=== PATIENT | male | born 1990 | race Caucasian/White ===

== ENCOUNTER 2023-05-18 12:43 | Outpatient (OUT) | payer OTHER, SELFPAY ==
[2023-05-18 13:01] LABS: Basophils Percent Auto 0.4 % (0.2-2.0); Eosinophils Absolute Auto 0.1 10^3/uL (0.0-0.7); Eosinophils Percent Auto 1.1 % (0.9-7.0); Hematocrit 43.8 % (42.0-54.0); Hemoglobin 15.6 g/dL (14.0-18.0); Immature Granulocytes Abs Auto 0.01 10^3/uL (0.00-0.03); Immature Granulocytes Pct Auto 0.2 % (0.0-0.5); Lymphocytes Absolute Auto 1.5 10^3/uL (1.2-3.8); Lymphocytes Percent Auto 28.4 % (20.5-60.0); Mean Corpuscular HGB Conc 35.6 g/dL (29.9-35.2); Mean Corpuscular Hemoglobin 31.1 pg (25.9-34.0); Mean Corpuscular Volume 87.3 fL (80.0-94.0); Mean Platelet Volume 10.1 fL (9.5-13.5); Monocytes Absolute Auto 0.4 10^3/uL (0.3-0.8); Monocytes Percent Auto 7.5 % (1.7-12.0); Neutrophils Absolute Auto 3.3 10^3/uL (1.4-6.5); Neutrophils Percent Auto 62.4 % (43.0-75.0); Platelet Count 218 10^3/uL (150-450); Red Blood Count 5.02 10^6/uL (4.70-6.10); Red Cell Distribution Width 12.1 % (11.0-15.0); White Blood Count 5.4 10^3/uL (4.0-11.0)
[2023-05-18 13:21] LABS: Estimated Average Glucose 97 mg/dL
[2023-05-18 13:46] LABS: Alanine Aminotransferase 28 U/L (16-63); Albumin Globulin Ratio 1.4; Albumin Level 4.6 g/dL (3.4-5.0); Alkaline Phosphatase 65 U/L (46-116); Anion Gap 6.3; Aspartate Amino Transferase 16 U/L (15-37); BUN Creatinine Ratio 14.3; Calcium 9.1 mg/dL (8.5-10.1); Carbon Dioxide 33.6 mmol/L (21.0-32.0); Chloride 101 mmol/L (98-107); Chol HDL Ratio 2.7; Cholesterol 172 mg/dL (<=200); Estimated GFR (African America >60 (>=60); Estimated GFR (Non-African Ame >60 (>=60); Free T3 2.84 pg/mL (2.18-3.98); Globulin 3.3 g/dL; Glucose 85 mg/dL (74-106); HDL Cholesterol 64 mg/dL (40-60); Potassium 3.9 mmol/L (3.5-5.1); Sodium 137 mmol/L (136-145); Thyroid Stimulating Hormone 1.583 uIU/mL (0.358-3.740); Total Protein 7.9 g/dL (6.4-8.2); Triglycerides 55 mg/dL (<=150)
== END 2023-05-18 12:44 | disposition home or self-care (01) ==
LOC: LAB 12:47
PROVIDERS: PCP Family Medicine; Visit Provider Family Medicine
DX: Z00.00 Encounter for general adult medical examination without abnormal findings (principal); E78.5 Hyperlipidemia, unspecified; R73.09 Other abnormal glucose
CPT/HCPCS: 36415; 80053; 80061; 83036; 84436; 84443; 84481; 85025

== ENCOUNTER 2023-06-10 09:58 | Outpatient (OUT) | payer OTHER, SELFPAY ==
--- NOTE | 2023-06-10 10:06 | US_ITS ---
The [address] [address] Patient Name: PAT DICKENS MRN: [id number] date: 1990 Sex: M Assigned Patient Location: US Current Patient Location: Accession/Order Number: [id number] Exam Date: 06/10/2023 10:07 Report Date: 06/10/2023 12:03 At the request of: CLEMENTINA HENRY Procedure: US right upper quadrant EXAMINATION: US right upper quadrant HISTORY: R10.11 right upper quad pain , epigastric pain COMPARISON: No relevant comparison available. TECHNIQUE: Transabdominal evaluation of the right upper quadrant. FINDINGS: LIVER: Normal size and echotexture. Color Doppler demonstrates patent hepatic veins. PORTAL VEIN: Duplex Doppler demonstrates normal hepatopetal flow pattern with flow velocity averaging 24 cm/s. GALLBLADDER: No visible gallstones, wall thickening, or pericholecystic free fluid. Negative sonographic Ramsey's sign. BILIARY: No abnormal dilation or stones. Common bile duct diameter is within normal limits. PANCREASE: No visible mass, abnormal atrophy, or duct dilation. KIDNEY: No hydronephrosis. No visible mass or stones. Size: 11.0 x 5.4 x 4.2 cm US/US right upper quadrant IMPRESSION: 1. Normal right upper quadrant ultrasound. No specific findings to account for patient's symptoms. Electronically authenticated by: PAT DE SOUZA Date: 06/10/2023 12:03
== END 2023-06-10 09:59 | disposition home or self-care (01) ==
LOC: US 09:59
PROVIDERS: PCP Family Medicine; Visit Provider Family Medicine
DX: R10.11 Right upper quadrant pain (principal)
CPT/HCPCS: 76705

== ENCOUNTER 2023-10-11 09:20 | Outpatient (OUT) | payer OTHER, SELFPAY ==
--- NOTE | 2023-10-11 09:24 | US_ITS ---
The [address] [address] Patient Name: PAT DICKENS MRN: [id number] date: 1990 Sex: M Assigned Patient Location: US Current Patient Location: Accession/Order Number: [id number] Exam Date: 10/11/2023 09:50 Report Date: 10/11/2023 14:09 At the request of: CLEMENTINA HENRY Procedure: US abdomen complete EXAMINATION: US abdomen complete HISTORY: Right Upper Quadrant Pain COMPARISON: Ultrasound right upper quadrant 06/10/2023 TECHNIQUE: High resolution sonographic examination of the abdomen was performed. FINDINGS: LIVER: Normal. Normal size and echotexture. No significant masses. Normal waveform and flow within portal vein. BILIARY: Common bile duct is upper limits of normal in diameter, 6 mm. Unremarkable gallbladder. Negative sonographic Ramsey's sign. PANCREAS: Normal. No visible mass, abnormal atrophy, or ductal dilatation. SPLEEN: Normal. Normal size and echotexture. KIDNEYS: Normal. No mass or obstruction. AORTA/VASCULAR: Normal. No aneurysm. Duplex Doppler demonstrates normal flow and waveform. OTHER: Negative. US/US abdomen complete IMPRESSION: 1. No abnormal or suspicious findings to account for patient's symptoms. Electronically authenticated by: PAT DE SOUZA Date: 10/11/2023 14:09
--- OUTSIDE RECORDS SUMMARY | 2023-10-11 09:26 | XMS_ITS | CCD ---
Author Organization [facility] Care Team Providers Care Civil Engineering Project Designer Name Role Phone DR CLEMENTINA HENRY Primary Care Unavailable DR CLEMENTINA HENRY Consulting Unavailable DR CLEMENTINA HENRY Attending Unavailable DR CLEMENTINA HENRY Admitting Unavailable WESTDR SHANELLE V Consulting Unavailable Chloe Borges Unavailable Allergies Allergy Classification Reported Allergen(s) Allergy Type Date of Onset Reaction(s) Facility Penicillins (antibiotic) (1 source) Amoxicillin Drug Allergy [facility] Repository (1 source) Amoxicillin Drug Allergy [email or web address] Other Medications Current Medications Medication Drug Class(es) Dates Sig (Normalized) Sig (Original) dexamethasone 1 mg/ml / neomycin 3.5 mg/ml / polymyxin b 90124 unt/ml ophthalmic suspension (1 source) Aminoglycoside Antibacterial, Polymyxin-class Antibacterial, Corticosteroid Neomycin-Polymyxi n-Dexameth [id number] INSTILL 1 DROP INTO LEFT EYE THREE TIMES DAILY FOR 7 DAYS Ophthalmic for 25 Days Active doxycycline hyclate 100 mg oral capsule (1 source) Tetracycline-class Drug Start: 10-12-2022 take 1 capsule by mouth every twelve hours Doxycycline Hyclate 100 MG 1 capsule Orally Twice a day for 10 Sep, Active predniSONE 20 mg oral tablet (1 source) Start: 10-12-2022 take 1 tablet by mouth every twelve hours predniSONE 20 MG 1 tablet Orally 2 times a day for 5 day(s) Sep, Active Problems Problem Classification Problem Date Documented Da te Episodic/Chronic Chronic obstructive pulmonary disease and bronchiectasis (1 source) Bronchitis, not specified as acute or chronic Episodic Other nervous system disorders (4 sources) Paresthesia of skin; Translations: [PARESTHESIA OF SKIN] Onset: 11-21-2020 Episodic Other upper respiratory infections (1 source) Acute sinusitis, unspecified Episodic Spondylosis; intervertebral disc disorders; other back problems (1 source) Other cervical disc degeneration, unspecified cervical region; Translations: [OTH CERV DISC DEGENERATION UNS CERV] Onset: 11-25-2020 Chronic Results Test Name Value Interpretation Reference Range Facility Physical Therapy Noteon Physical Therapy Note [id number]#1.0 [facility] [id number]#1.[address] [place] [address] Provider Orderson 12-27-2020 Provider Orders [id number]#1.[address] [place] [address] Coding Summaryon 12-26-2020 Coding Summary [employer]Base 64 PokeiaiiSBq0sDn+PGhlYW Q+CS5EVQMuM28znCVkhK2D M3jRJN8PZEPWTMAQPU8GOY 5blET3XFvxT8YsgbZh FknzePLbEF70GTs9OTV7vD hoSPufrC7jzQIiJ2v7NuGj UV47yB97HNjcLQXjJzA1Oq ZpbjsgbWFy I5maFzApgSJmCmd+PHRhYm xlIHdpZHRoPScxMDAlJyBz nEisZZ2fCi8jEBVnZDCkjK xhcHNlOiBj a7kiMVQlYBdwWO2hkTgjW9 NshCX3DOMtb3t5Xg65cZP+ TTBrKTB6hBvgKIrfi444Li Mzj7mbZYQ3 aRBaHHthNBX9K43sa3R5YM QoUTBpOYK0eYI9nT5rdPla ktttN6HvmVQwIrZ5MUQ6qO OpwP0eqCdc sehslR3mQzl+F05UPG0SAF QLPE5KPuv4F6VyUzeciTN+ FE18FAHnLX33nEPuaFIui7 kghIu5CdEt BIGjHAP6oMbrUHdlb8RlVG XqZ63bgBLfw7U6KBPtdWze aGRbOgBwxPJ3aK3bDQiftg hmc2awiwwz Ctsxa7xoqr61xS50F98bDX iwNYSwNMH2LSTwRAZsfJmo hp1aqE4gTp6+SVkri9eis1 awhCa7ZhKh PYZnzmZovQowTRH9s9QpTy 10N6GtaUooh1JrDtm4ok77 fWOkr4S5vNB2JWsnDDHqjC 9pYAbiSfU1 MTYlSpWdpI12iMEcGObzEw 0ugRztaBqhUS7dXNAouxqg BVJkiF8sUCTqfUHepXhmLR 4wNTBpbjtm u711UoMuKRY2FVSwuJCbP5 UrrM0qKkEbEHBvFXRxE6Sn cWCyXNeqK934MCnqBfF8BW YpblAgS1Vb UNNdySlfWeN1d9U4Ym6Wz2 OkupdwAYK9VTmlTBF7KmO7 EcToOaZ7A0ImFac2DQLvpF fnPI1mG8Tr NYLdkfcwmsayiRP1QRBbNA TdyP00fCOxRVfsZz5cz8I3 d083KMRpONFwaI55Ax6nwG ogMTBwdCBU gQ2zqpffb8vgekuxIlDjPV AgPEe4WMs8IWQqnFjbMfPo DRA3EiA5IYX2eXGskI0jyS hsfttpnS8v Oyc+N08cyE3lEAD7DQV8wg wtIBRwzoGyIC93OZ66R5Lp PjwvdGFibGU+PGRpdiBzdH vbVF6oSjDg n8uig6PlZVrnT0CvNSDzHL rbXng3GOLgVMO4sOY5oH1v OWYiHNyny2Q7dKX5P6Uehw Gasr6gw8nm ZNFrALthS39spDCik8N9VB WfjMS4FRGdeRxjKyWbsY71 Oyc+XNXzyYowy4PmOpnna0 eta5tiiBe2 SaAiMIOkcqFozCdlLEO6x6 JqZy42T17nDCpzSSAxIYUb UFLsFLCagAmeem2bwU2iWw 8+PGNvbCB3 pFK8oX5qDZGqXrQ1DWpuM5 40QdRjnYOhPnrco7sav5om mLe1GdTcFDVrocEdmLxdJR F5n5HrHx76 M85fWHktTQHcQZEzOVCiNC WpaUnexv8lqR9sPv2+PC9j s4tccp04uT12yQY+PHRkIH Q8xBqeSWph XSDsqQ4bCFspLdM1UXHpCq DavN90nAWzHCzcDx8hdJcq yWufIA6kOEBtohscx944Au Cvn8xwXVOe gJQzFXkzJBS8E97hv2J3LQ LfGWVmXTP5qKD2nO9gkPoj bjogbGVmdDsgdmVydGljYW mvXMxiJ304 IHRvcDsnPlBhdGllbnQgTm ImOGy2A8MiSdr3TMEhfAdy SL2tzLRuYOboXw8vlGjfxP noPU3sBHTh rjsqc423RkUxv7gpAWIfiD UbBIxeTMW4O96pa8G4XFDw FJQhREW0bJB0dB9vlZbose ogbGVmdDsg ltVjvYwbHNlhUCaxD353NZ RvcDsnPkJpcnRoIERhdGU6 TA09LH82xGGyp4E9jSJ9H9 BhZGRpbmct hdnsnPY2FAGkPYPucB93Aj 9jxGllXj1yYXKkZSD5APIp zVKsC8XbvK9lGbToKZLdSE WuY1DsgPHk ZXauZ002RDztDzH2BYNgpl CyT7UjZDBbbHncTqI3i0Z4 Lk5TO4G0TG53FL89eIAot1 U1sXY9X5St SUAypozhkygjeFH1XIOoFE RxrZ14Ua6pxZytKo0bLVPk PPP0YFKwkGGxD0TavZ5fMk AjMDAwMDAw E2PbfYFlSQpdE712YPyoPx N2AHClrfQzQ7WfUIBztKyq GsJ2y7S3Xx8FGIk1YI26WB 78oGScq4A9 tHG8M4ZxVDJottqlxglstG M8OMQbIOTrdT67Dg8srOvv Mr3gDZKkSWT2KGAyfXZtE6 ZooZ0gIrJi PWEcTHIaB0YpqHHaBQfrL1 45NVajYkB6JLBoxtSnN2Oy RXClqNtuCgZ7h7S1Ls1STL IlSU70YFW0 iJU4AU56DE61D5SfCrlgoX FibGU+PHRhYmxlIHdpZHRo SPixTLFpLzSixFczOF8xPh 9yZGVyLWNv hLhyuWHaItMnl6hlEWOuSE xvAM3flQlaT3NznBL6JHYq p2u2Ro13S93fR9EomYV+PG CtnLR2pRU1 aC4cCzWqFyZ1ZNdmH784Ol ZdsBVfZvtij9wbw6geePs7 DbP3PPNkvlMllXxuMGV6x9 IxXs65D02y IHdpZHRoPSIxNSUiIHZhbG ldsy6xxB2pFc4+PGNvbCB3 nED0xA9oZhKpSmV3ADqjE6 49InRvcCIv Nfiej4dkj9mstPn0WbSxUK LebhRxaZkxRFY4f7DdIs22 F9ZvdOksb5QcXjw1yq66oJ Fko5X8nOA3 Y5UwCSGpjplerPMxuPnpUE 9yZVKcmvxaVWZmhC0sMZCp U3o7ZwClRyV7EIjrW7Sbza K7COJycATn OGqtOVN7F16gb1Z0ULUsHU IfVIT5zWW5dD8tjBdctmsf bGVmdDsgdmVydGljYWwtYW rgH404OSNr yHqeLTCehG9uLFWjhSRiaB shCG2tSTXlbcucShmGFI5S G02xOeDuYWVRZTYAVcJIG0 9UVDwvdGQ+ CFWiOKD8eEyzEIpxOOOzqB 7xQJPcV4g7KpQeExD7AZnb G7JaZYXmxzuxNk83lE0wIi EbNiK5ZYyh B8IfiaG0BXXwdLYfAZmkVP G7Z04oz3I7PPYyEYLnRCL7 uPE2kE1bgYiafcweoQVreY sgdmVydGlj CTyhHVlhK511RJAyrGpwAu Z6UuX5EoV6LEV3C9PzNho5 XFKbvHcbYG0erQSaRAqkLm 1yaWdodDog TI5yADPbyrbvKZJtpD4nTR IxiQBioFouAS8wNERkcswn y285HkOtLOM2AMGbfIKqW2 XczA0hMmLw PTCwQRPsP4XvnEZaAZmvN3 54FOgfTiM9OVXvwhFhA0Hw RGWkdVwtWrI5w8S0Zg6fXF BZZWFyczwv dGQ+ZSEpHYH0bYtkGGocLS UpuZ1cRYBmP7h2SyOfDeS6 RKjaB9KzHZUkfgyaTk06yW 1aJsTiTlH6 UKanH4FujwL8KFUruCSqOX gaCZP5U25jw1C4BANfTWXr DJP0uOQ2xQ1ebDqqvwpqhV VmdDsgdmVy sHrnYVtdUVkpT611SRQzsC ahFs5CVET9W6XwJxg3CNJy rRpiHR3kmRZbULymWc6ubL shlKsrYS8r WCDffvvbKYJhwM2kZAXtlP KmuBvbMZ2kHGVqiiiht250 BdXlRWT1TKTljWWgU6PffG 9yOiAjMDAw UYTwP4KqqWRwFWlvR353LP ebUjS6PHApaxKoN0CiBLWd oTjgVyN5i7P4Fx8DUZQ2mc EwdklzE4K5 uCZ5uNOttMmauJW+PC90cj 37B0IzGhirUsm9LQJrAIX4 lYB1kO8zFDDuLFqua9M5xL W6W8KbkgEo gr9zf3ntCFUeDVjvU61bvO Frg5Z2GEAanZC5ZQIbrOoz VkQqoH06Pxn+PGNvbGdyb3 VaWcniz6fj j4qhwDp7VfGvJVTpplYrcL zpJDY8z2YoKc06R27aDNbw ZHRoPSIzMCUiIHZhbGlnbj 1mgI4iWc7+ MFZdyJC5cUA4dD3hWtWwJm X3VXowO539ZkZaxZVvMmvf n7yuo9drnIn8AhUuZJYllq FsaWduPSJ0 q9IaGu06P3RvdYlye0WaRk e0zd76fAQjk4O9tGZ1L8Ka VYNyjwvxjATyvXnjGI7vHF BpbjtwYWRk jN5sHZZpI4e8TbDaMuD1ZG nzD9FkwzF1GEFqsDHpDMBi uVNFwQ4ctlmbj8tajkhaSc AwMDAwMDt0 FIa9IQMlhAmgKlCsYPN8Pg I1FHO7kPQrgN4zsUyuudfg iQ1cApu+EDj2b6vofKJpRV 5bnNA2WH14 OK38jGHxe6I5hJD5F9FyIS BcdrqfextrbTG0KJXfHVZk uC05Ol6zuJqoTn7cUMXwMV D7CTTyzYTl V4OolQ4eTqLcCIGjNGKlP8 GfkGBpAUsvJ667OGlpRkQ7 EOEbuoXsE4JaHNBkbWfqBa K1v8N1Ep2Y ZD39QH48YU90uUEpm5N7kP U0J1EaKVVbgepmjhrxxQQ8 KHBvTMYcfC47Ph1imHsaEg 8xCWNyHHP6 BZIwwVMyJ5FlaD3lUzKaVY YdUSVgF2IoyFCuCYjfM129 TOiuAnD4BNOasmZiZ5LpEY FsaWduOiB0 h3A3Xx0GZo42UN95VR83oK Omy5P1hNR8O5McBZOxuqmk qsnqhSP1OWQiTEZmwS44Sp 9aeEppGr9x ETNpAMF1GXRagTSlK1KxeD 6hRjXyKFTuXGDvL5NdaSYy SBezE495QJitJkY0SIKvex AmE4OxUISa dHieHoK5q0L6Lr3MCWcafk f0D0BpCrlemAY+XK57YMIv PI52iSYjfTCus4dasMd7Yx EwMCUnIHN0 eWx (more content not included)... Normal [facility] XR CSPINE MIN 4 VIEWSon 11-12 XR CSPINE MIN 4 VIEWS EXAMINATION: XR CSPINE MIN 4 VIEWS HISTORY: Paresthesia COMPARISON: No relevant comparison available. FINDINGS: BONES: Normal alignment with no acute fracture or spondylolisthesis. Mild degenerative spondylosis and facet osteoarthropathy DISC SPACES: Normal. No significant disc height narrowing, subluxation, or endplate abnormality. PARASPINOUS: Negative. No paraspinous abnormality is seen. OTHER: Suspected left C3-C4 foraminal stenosis IMPRESSION: Mild degenerative changes with suspected left C3-C4 foraminal stenosis. Consider MRI for further evaluation Electronically authenticated by: SHANELLE HARTMAN Date: 2020-11-22 07:07 Normal [facility] CNPTOUTREACHocain 09-11-2020 [facility] Patient Outreach (COVAMN) PAT DICKENS JR. ([id number]) 1990 M Date Time Provider Department 09/11/20 SHIV TEE During your visit today, we recorded the following information about you: Allergies As of Date: 09/11/2020 Noted Allergy Reaction AMOXICILLIN 06/04/2019 4 - Hives Date Reviewed: 07/16/2019 Reviewed by: Nathan Krishnan Ma - Fully Assessed Order(s):SARS-COVID VACCINE 1ST DOSE APPT [[id number]] Order #: [id number] FUTURE Prescriptions as of 09/11/2020 Sig: OMEPRAZOLE 40 MG CAPSULE,NAYA* Take 1 capsule by mouth daily* AMITRIPTYLINE 10 MG TABLET 1 tablet at bedtime week 1, 2* Patient not taking: Reported on 07/16/2019 Problem List As Of Date: 09/11/2020 (None) Encounter Status:Closed by [employer], PRODUSER on 09/14/20 Normal [facility] Vital Signs Date Time Vital Sign Value Performing Clinician Facility 10-12-2022 13:50-0400 Body height 175.26 cm Chloe Whitmanmond Other [email or web address] Other 10-12-2022 13:50-0400 Body mass index (BMI) [Ratio] 22.44 kg/m2 Chloe Katerina Other [email or web address] Other 10-12-2022 13:50-0400 Body temperature 97.6 [degF] Chloe Katerina Other [email or web address] Other 10-12-2022 13:50-0400 Body weight 68.95 kg Chloe Katerina Other [email or web address] Other 10-12-2022 13:50-0400 Respiratory rate 18 /min Chloe Katerina Other [email or web address] Other 10-12-2022 13:50-0400 SaO2% (BldA) [Mass fraction] 98 % Chloe Borges Other [email or web address] Other Encounters Encounter Date Encounter Type Care Provider Facility Start: 10-12-2022 End: 10-12-2022 ambulatory Chloe Borges Other [email or web address] Other Start: 10-12-2022 Office outpatient ne w 20 minutes Chloe Borges [facility] Start: 11-21-2020 End: 11-22-[address] CLEMENTINA HENRY Facility: Payers Date Payer Category Payer Unknown [id number] 1957 Unknown [id number] Social History Date Type Detail Facility Unknown if ever smoked [email or web address] Other Sex Assigned At Sex Assigned At Bir th [email or web address] Other Evaluation note 10-12-2022 Note Date & Type Note Facility 10-12-2022 Evaluation note Encounter Date Diagnosis Assessment Notes Sep, Acute sinusitis, recurrence not specified, unspecified location (ICD-10 - J01.90) Sinusitis home care material was printed Drink plenty fluids, get plenty of rest. Take Tylenol or Motrin as needed for aches pains or fevers. Take the doxycycline as prescribed until gone. Take the prednisone as prescribed until gone. Consider running a coolmist humidifier at the bedside. Follow-up with your family physician if no improvement in 2 to 3 days Sep, Bronchitis (ICD-10 - J40) Acute bronchitis material was printed [email or web address] Other Medication management note 01-04-2021 Note Date & Type Note Facility 01-04-2021 Note [id number] [facility] Clinical Note 11-22-2020 Note Date & Type Note Facility 11-22-2020 Note PROCEDURE: XR SHOULD ER LT 2V or > COMPARISON: None. HISTORY: Paresthesia FINDINGS: BONES:No fracture, acute abnormality, or significant arthropathy. SOFT TISSUES:Negative. No visible soft tissue swelling. EFFUSION:None visible. OTHER: Negative. IMPRESSION: No acute abnormality Electronically authenticated by: SHANELLE HARTMAN Date: 2020-11-22 07:09 [facility] Summary Purpose Family History No Family History Records FoundNo Family History Records FoundNo Family History Records Found Advance Directives No Advanced Directives Records FoundNo Advanced Directives Records FoundNo Advanced Directives Records Found Additional Source Comments (unrecognized sect ion and content) No Status Records FoundNo Status Records FoundNo Status Records Found INFORMATION SOURCE (unrecogn ized section and content) DATE CREATED AUTHOR 09/14/2020 [facility] DATE CREATED AUTHOR AUTHOR'S ORGANIZ ATION 11/28/2020 [facility] DATE CREATED AUTHOR AUTHOR'S ORGANIZ ATION 03/21/2021 [facility] REASON FOR VISIT (unrecogniz ed section and content) SORE THROAT, COUGH, CHEST CO NGESTION FOR RECORDS PERTAINING TO PATIENTS WHO ARE OR HAVE BEEN ENROLLED IN A CHEMICAL DEPENDENCY/SUBSTANCEABUSE PROGRAM, SOME INFORMATION MAY BE OMITTED. This clinical summary was aggregated from multiple sources. Caution should be exercised in using it in the provision of clinical care. This summary normalizes information from multiple sources, and as a consequence, information in this document may materially change the coding, format and clinical context of patient data. In addition, data may be omitted in some cases. CLINICAL DECISIONS SHOULD BE BASED ON THE PRIMARY CLINICAL RECORDS. [employer] provides no warranty or guarantee of the accuracy or completeness of information in this document.
== END 2023-10-11 09:21 | disposition home or self-care (01) ==
LOC: US 09:20
PROVIDERS: PCP Family Medicine; Visit Provider Family Medicine
DX: R10.11 Right upper quadrant pain (principal)
CPT/HCPCS: 76700

== ENCOUNTER 2023-10-24 14:08 | Outpatient (OUT) | payer OTHER, SELFPAY ==
--- NOTE | 2023-10-24 14:16 | CT_ITS ---
[address] [address] Patient Name: PAT DICKENS MRN: [id number] date: 1990 Sex: M Assigned Patient Location: CT Current Patient Location: Accession/Order Number: [id number] Exam Date: 10/24/2023 15:25 Report Date: 10/25/2023 06:51 At the request of: CLEMENTINA HENRY Procedure: CT abdomen pelvis w con EXAMINATION: CT abdomen pelvis w con HISTORY: Right Upper Quadrant Pain R10.11, Periumbilical Pain, Nausea COMPARISON: Ultrasound abdomen complete 10/11/2023 TECHNIQUE: Axial, Coronal, and Sagittal images were obtained without and/or with IV contrast as indicated by examination type. Dose reduction techniques were achieved by using automated exposure control and/or adjustment of mA and/or kV according to patient size and/or use of iterative reconstruction technique. FINDINGS: LUNG BASES: No visible pulmonary or pleural disease. LIVER: No enlargement, atrophy, suspicious density, or significant focal lesion. BILIARY: No dilatation or calcification. PANCREAS: No lesion, fluid collection, or abnormal duct dilatation. SPLEEN: No enlargement or focal lesion. ADRENALS: No mass or enlargement. KIDNEYS: No mass, obstruction, or calcification. BOWEL/MESENTERY: Approximately 12 cm long segment of circumferential wall thickening of distal small bowel. No obstruction, free air, free fluid. AORTA/VASCULAR: No aneurysm or dissection. RETROPERITONEUM: No mass or adenopathy. LYMPH NODES: No adenopathy. URINARY BLADDER: No visible focal wall thickening, lesion, or calculus. PELVIC ORGANS: No visible mass. Pelvic organs appropriate for patient age. ABDOMINAL WALL: No mass or hernia. BONES: No bony lesion or fracture. OTHER: Negative. CT/CT abdomen pelvis w con IMPRESSION: 1. Segment of abnormal circumferential wall thickening of distal small bowel within right pelvis suggestive of inflammatory bowel disease/Crohn's disease. Possible focal enteritis. No obstruction. Electronically authenticated by: PAT DE SOUZA Date: 10/25/2023 06:51
--- OUTSIDE RECORDS SUMMARY | 2023-10-24 14:33 | XMS_ITS | CCD ---
Author Organization [facility] Care Team Providers Care Folded Cloth Taper Name Role Phone DR CLEMENTINA HENRY Primary Care Unavailable DR CLEMENTINA HENRY Consulting Unavailable DR CLEMENTINA HENRY Attending Unavailable DR CLEMENTINA HENRY Admitting Unavailable WESTDR SHANELLE V Consulting Unavailable Chloe Borges Unavailable Allergies Allergy Classification Reported Allergen(s) Allergy Type Date of Onset Reaction(s) Facility Penicillins (antibiotic) (1 source) Amoxicillin Drug Allergy [facility] Repository (1 source) Amoxicillin Drug Allergy [facility] Other Medications Current Medications Medication Drug Class(es) Dates Sig (Normalized) Sig (Original) dexamethasone 1 mg/ml / neomycin 3.5 mg/ml / polymyxin b 14095 unt/ml ophthalmic suspension (1 source) Aminoglycoside Antibacterial, Polymyxin-class Antibacterial, Corticosteroid Neomycin-Polymyxi n-Dexameth 3.5-83678-0.1 INSTILL 1 DROP INTO LEFT EYE THREE [...] Facility Physical Therapy Noteon Physical Therapy Note [id number]#1.0 [facility] [id number]#1.[address] [place] [address] Provider Orderson 12-27-2020 Provider Orders [id number]#1.[address] [place] [address] Coding Summaryon 12-26-2020 Coding Summary HTMLBase 64 LajixdzdNJc5wGu+PGhlYW Q+MC6ISYKmN20obQQzxJ4W P5tHGF1TDHDBDRQCSS7LSP 9lfNH5ZPgdQ2PxldGc DyiyaSDxOO57NUj7YHV7aB hoGEkrbL3liAIzM7m8QbPo ZK14aS48ZSovEKZqQjS2Af ZpbjsgbWFy N7ctLxDjpBDlHrx+PHRhYm xlIHdpZHRoPScxMDAlJyBz zJwcKB1oGz4iACFqSOUxoK xhcHNlOiBj g8otUNKxODrmPV2kvVjaF8 LbvZZ6BHKyv9x5Vv56tXP+ CRPsXZG7iDvqHXurv720Bx Phi0bvZJD1 vAIvHGbeFFC7S29nb5V2LQ BcBQEdJMQ3mWI6pA8nvLtw kaauL6BwrSCgBxX0MZD2eD OxxU9awMxl tucpgO6uPvz+H64MUQ3POZ KHDW0FKzy6D1AxPuhczQF+ SD45OFLvEJ16lKAlmRYuk7 jwsMd0IlHo PSWgBEJ1nWsnEWrnm6BqGU IoJ98hdISbi6J7UZWyuVkw pFArZnEzzUB1sM5pXSwwtr ydv9kdknck Gizzt8afyo01lJ17M67bMD nvMOTaNXZ3WTXzKMDftHpc he1lfM4iOm3+ZOnxd9tma1 pisBz7WlWt LQKjghGxqWoaHKZ5s1HoOt 12N5WfsChgx8XoAov3ub03 jTYga2S1tRU2BDeiGFApjE 4iUVrmOcJ4 GCTvDfKyiH36gKWaVOljVh 3axPvpbUiaIJ0vFEPesciv LIAihD4kZAUumRZjgNkoPC 4wNTBpbjtm h508VxTvQBF6TEKubTYrM3 YutB8tCfDmUHOuXJFiL4Hh uELfTEomF312YBvjSeF6VW OdvzVxT9Zd KQPpzXoiGiW1j5A8Xu7Qs8 GwkkhvTKL1VZijYIT5JhH3 MpQwYfT6C5LlWct4QXCvrX gkSZ8jX7Xu HSIvckbpnoiflTI0HYObMY JzeU16pUQbDHwfEp8zr1F5 m457JLZeTUBsgR07Rj1zyY ogMTBwdCBU fG8mcedvt4nzltznEqAfES YsGBe5QJq0WYVtlDyuAsDu BGI5DfM0ZEY2cJFwkX3zhA tzpxybrX6o Oyc+J62hyK9rIYJ5PAG7pg kmYVEedvNpVM63RA69B9Fp PjwvdGFibGU+PGRpdiBzdH eiTM5oLrHe q4lkt2GzWQhnI7KqFFGaAH qiFus1HXYvKKO4uYU4gG6i GXUhYCvcn1G7iHL2V3Gnco Aggd6ec6wd IZCdCWdgY16nzRSom6X2TX AkoAK8DCBtxHadUxCbvR53 Oyc+RUOkdXgxc4HeEpcox3 qpj5iacUw5 PyQbSDYqpaQmaOelBBA5v8 JzPp78E35mHWkwTYUpIYTl NRWuFECnzUoscn9jiK9cHw 8+PGNvbCB3 wZD0uP9uVEQsSnA1KGoiX6 86IsXorMFxJoofp2mhi9nq sVe2OpSfRAFhfsEorCzjBU T9r9YwBl04 A97dEXfjTSArKEFiNNYtJU IpeTbbst0rbQ8bEn4+PC9j t7nyuh77yK67rST+PHRkIH Z5wOqxHQkb FQJogV5mNIroIuM3MZEnCt QpuU96rJBzWYmuEl6qePkt gYqcTT4eDXVdizdre030Ht Wei0tqRQFq sCEkMTguIGC2X25ab2D0MP HlSTBvVUH6vCC3wI5jxRtn bjogbGVmdDsgdmVydGljYW jgVWiqP176 IHRvcDsnPlBhdGllbnQgTm FnTJv5R8IkGdd1QIPjuDcb EM0hqKGxRIhcVt0paDbwlB clQV0vNLRf tgohu336QfApd8gcSLSzkS UwOZquTSL5M27lt6L3TCUs ZILxXIE7jLV1iH6koUsjhb ogbGVmdDsg hpTrfKsrCIkvKDvnN657XP RvcDsnPkJpcnRoIERhdGU6 HP47AB05eEMvc6R1yKS1N7 BhZGRpbmct ixgekPR9FNRvHKIevJ77Oq 8ugZozIj3yIHIhTKQ9SRDb oMNoZ3TzkF2yLaPbPEUuYH MkN1PhzDRx KYulJ389ZTefLjQ9RILsmd QmS9ZoDSQrxIywAbU4c1X3 Pr2BC6M1BG14AW67dQSql1 S1dDM6E1Kw GEXtfjolrozhsBO7MXUkWT TveN17Yz5cfIazCg9sKIHk UPD3MXMevWSfO4GwsK7zOm AjMDAwMDAw R0RweDUsTWhqA059VFiuFg D8XEPxhfCxM1JlUYFajUjv SfJ9s0E1Dy9ZQEb3SK53MJ 35mTJon9H3 fHK6D0UiRXFvajxwwtdbpL V8FKWoDVHbyK43Nd1irNkv Nu7wRGXhXDS8AUZcdPGgH6 CinK4cDzBj ZNOwLFCaU8GzvXYqHPfkO8 22AEbiHlV4BCNdjrBiZ9Cy NEBdvOavWeT6w3D7Ox2ZOW HlIS13JYT2 xQL4YC69QA09H1JgNblhqH FibGU+PHRhYmxlIHdpZHRo FFvqEZRvKcWulWpfSX9iYw 9yZGVyLWNv jLtowLYyAcBut3exQCZlWP kfCE2eeQxrP8PggUV5KSFq i5n0Dn05G36lU9CpeQB+PG LvoDF8tWZ3 cE9oSpBmNmT6UOefE233Kz CtxDRpYiecy7iar0ibvTs5 FqS7GZNyqoDenDuaGFJ1r0 JaWu98B78c IHdpZHRoPSIxNSUiIHZhbG imad2viU6tOv0+PGNvbCB3 fZM4yB3mHuQfNhI1HHsjF0 49InRvcCIv Fjxaz5epl8dddIm2UiMuLR DrbeSugSycGKW8n8AtYr29 G1DhsHwty8YpWzm9jb01gF Wgb4J0pLU1 Q4YdQELsdjgbhUVwyOugUF 8hXRFctgyeDGYzbV4iHBMi C4z4YsKoPyQ2SNnaF2Jfpf G2TQRfqJNi TBrfNUM2T13gw9M3BTJhLS OaUXB6nDM4vS1joQhvazvp bGVmdDsgdmVydGljYWwtYW hpC021INOm gJghHANcpF5tMWMrbEObwK anJX9dWPEqlfnmTiuYLD8F E22wBaOzXQADWOISVeVQT4 9UVDwvdGQ+ OPHdYKB1jBozBHbeCQQgsR 6mPALoH2d9IjGzYtB7OZbf Y0YlKIOjjibdIn54jI3aCr ZtPsY6KFqw Y6MypzI1XFVawEPrJTsyDF L8V10lo4S7TKDiIULwKNZ3 vJT3sT8ppCscwilfdSCueF sgdmVydGlj CIdePXdiG279WSFpiUgjMy U7UjP8EtR8GDQ0U5DpZtn7 NMPvfTxcAF0dlQOkHMbsAo 1yaWdodDog WV0gRMAfelnjRYXllO6sNQ GbqAJqoRibVO2yMKThhfkc e907WmOiXPF2GHSrrIDbM0 XmsO0lMcSt MSZkZRCuX7EwbKYyJYkqE6 55KLcoXfM7MLAwymNpW0Ab XBNpvPnlBlO9f1X2Yi6oYY BZZWFyczwv dGQ+DVYnZRT6aRjwQFsfKN GupJ4vIEUcG1h0TtEfXpF0 UCflB0NpFPVbbefwQj01yA 7kRlGsGnU8 KWyfE7XtbvG6OWEgrSJtZV vgSLC9K78pn4Z5MSFeOYFm ZDV4mVO8eB8azZbhumnezF VmdDsgdmVy tLvpGMoaTSsxV370DVNrwM vyTw3CHQL1J8HgYyl5PHYu rWixAM5nzRWhGVqdNo5awN vhuXnfNH7t WMHxzldrDPZsjZ0yVWKblY ZihLiqXO1lNZJyopwfy297 MbFbAQV0KTBqaNJvK6LwsQ 9yOiAjMDAw GPPrK4UyvOLxZLcxZ752MA cpDiD1MDUdshMjF9IsTSVd nKqfUiS8u0T4Pc1MHRX3hc JqhoyuI7A6 oOT7uDChyCdedWB+PC90cj 70G7VjAchcWgo4OKBfPLW2 gOS4pY9lLVTiAMrrb2B0sD E7O6BijqSm gy3uz3tiAVAvOPlaT72qoW Ieb4Q4QCHloAY1UUGaxWyt GcVshI13Zll+PGNvbGdyb3 XnWpbhb9li y2neiQf4EgUzPBGvilImfN zzXDF3s6BtLc74C00wAAle ZHRoPSIzMCUiIHZhbGlnbj 1bgL4mIq9+ XAVajDW7rKU0sL2bPwCxQm J5UUyiN121FhOxtQTwXsvz d6mkv0sgaGf5WbLaIMCkxh FsaWduPSJ0 q7YbWc71U1FlmHblx6WeDl p5nf65wOYvy1I4uEB7A3Nj PZRotjbmbECzhUhaOC5pPO BpbjtwYWRk lH7hOTKfM8s2ReJwZqF8OG xsC4AeugB9CQEwySLjVSUx iAHLtW3ktkeje1onsqzsVb AwMDAwMDt0 HTl2FRNzbXbvBaFwVEX4Pq Q9KFU9mTGpaS7omLccpfub zB4aSpu+CMy7b1drnAOrOM 2aoMX7NL81 TI85pKHlq8G4wQL9W1NgNQ KobfbmecjysPI9KVJpSFRl pZ93Cn4hdTwaEp8iKBWaWH I6WWMbbLPe P8OfmB8sSwBtWDEfCWIeI7 DvrNJyQHejH479GHwdKeL6 JNLoqcHtK3TzJMAcvGmnOj V0r0U4Vu4P IY05GS88AJ62zZUbx6E0jZ N3B2NrIHAeuhmjadndaRT9 UIKzXDWivY40Dd7hyFokEs 0cMGQrNJW7 WKBbyCGdK6OgoB1zZxYwQZ BsKSBsW4NtnWXiQJesE883 GDxmTzC4QPArzlJiB9XlSJ FsaWduOiB0 v9W9Xg2PBx73DM90FR90oU Fia6T3iKQ7C9LoOJGkzzbv iyvnjOL9HDJdXSLtpC17Ow 4viTblGt8h SIQzUMC9OWBcaMFvF5FcsC 9gJzTpJVNkSILnV9DmuOXq FPurX558AXlvHnJ7TEGdaq SxH7EiIDYk zCaiVgS3v4F1Ms7QYYjhuv x8C4TpRguhoVS+SP72GMWd EV73eWOprLTbb5bbbFp6Tl EwMCUnIHN0 eWx (more content not included)... Normal [facility] XR CSPINE MIN 4 VIEWSon [...] by: SHANELLE HARTMAN Date: 2020-11-22 07:07 Normal [facility] CNPTOUTREACHocain 09-11-2020 [facility] Patient Outreach (COVAMN) PAT DICKENS JR. ([id number]) 1990 M Date Time Provider Department 09/11/20 SHIV TEE During your visit today, we recorded the following information about you: Allergies As of Date: 09/11/2020 Noted Allergy Reaction AMOXICILLIN 06/04/2019 4 - Hives Date Reviewed: 07/16/2019 Reviewed by: Nathan Krishnan Ma - Fully Assessed Order(s):SARS-COVID VACCINE 1ST DOSE APPT [01325MMT] Order #: [id number] FUTURE Prescriptions as of 09/11/2020 Sig: OMEPRAZOLE 40 MG CAPSULE,NAYA* Take 1 capsule by mouth daily* AMITRIPTYLINE 10 MG TABLET 1 tablet at bedtime week 1, 2* Patient not taking: Reported on 07/16/2019 Problem List As Of Date: 09/11/2020 (None) Encounter Status:Closed by Cybits, PRODUSER on 09/14/20 Normal [facility] Vital Signs Date Time Vital Sign Value Performing Clinician Facility 10-12-2022 13:50-0400 Body height 175.26 cm Chloe Whitmanmond Other [facility] Other 10-12-2022 13:50-0400 Body mass index (BMI) [Ratio] 22.44 kg/m2 Chloe Katerina Other [facility] Other 10-12-2022 13:50-0400 Body temperature 97.6 [degF] Chloe Katerina Other [facility] Other 10-12-2022 13:50-0400 Body weight 68.95 kg Chloe Katerina Other [facility] Other 10-12-2022 13:50-0400 Respiratory rate 18 /min Chloe Katerina Other [facility] Other 10-12-2022 13:50-0400 SaO2% (BldA) [Mass fraction] 98 % Chloe Borges Other [facility] Other Encounters Encounter Date Encounter Type Care Provider Facility Start: 10-12-2022 End: 10-12-2022 ambulatory Chloe Borges Other [facility] Other Start: 10-12-2022 Office outpatient ne w 20 minutes Chloe Borges [facility] Start: 11-21-2020 End: 11-22-[address] CLEMENTINA HENRY Facility: Payers Date Payer Category Payer Unknown [id number] 1957 Unknown [id number] Social History Date Type Detail Facility Unknown if ever smoked [facility] Other Sex Assigned At Sex Assigned At Bir th [facility] Other Evaluation note 10-12-2022 Note Date & [...] - J40) Acute bronchitis material was printed [facility] Other Medication management note 01-04-2021 Note Date & Type Note Facility 01-04-2021 Note [id number] [facility] Clinical Note 11-22-2020 Note Date & Type Note Facility 11-22-2020 Note PROCEDURE: XR SHOULD ER LT 2V or > COMPARISON: None. HISTORY: Paresthesia FINDINGS: BONES:No fracture, acute abnormality, or significant arthropathy. SOFT TISSUES:Negative. No visible soft tissue swelling. EFFUSION:None visible. OTHER: Negative. IMPRESSION: No acute abnormality Electronically authenticated by: SHANELLE HARTMAN Date: 2020-11-22 07:09 [facility] Summary Purpose Family History No Family History Records FoundNo Family History Records FoundNo Family History Records Found Advance Directives No Advanced Directives Records FoundNo Advanced Directives Records FoundNo Advanced Directives Records Found Additional Source Comments (unrecognized sect ion and content) No Status Records FoundNo Status Records FoundNo Status Records Found INFORMATION SOURCE (unrecogn ized section and content) DATE CREATED AUTHOR 09/14/2020 [facility] DATE CREATED AUTHOR AUTHOR'S ORGANIZ ATION 11/28/2020 [facility] DATE CREATED AUTHOR AUTHOR'S ORGANIZ ATION 03/21/2021 [facility] REASON FOR VISIT (unrecogniz ed section and [...] BE BASED ON THE PRIMARY CLINICAL RECORDS. [employer] provides no warranty or guarantee of the accuracy or completeness of information in this document.
== END 2023-10-24 14:09 | disposition home or self-care (01) ==
LOC: CT 14:09
PROVIDERS: PCP Family Medicine; Visit Provider Family Medicine
DX: R10.11 Right upper quadrant pain (principal); R10.33 Periumbilical pain; R11.0 Nausea
CPT/HCPCS: 74177; Q9967

== ENCOUNTER 2023-12-20 08:56 | Outpatient (OUT) | payer OTHER, SELFPAY ==
--- NOTE | 2023-12-20 09:03 | CT_ITS ---
[address] [address] Patient Name: PAT DICKENS MRN: [id number] date: 1990 Sex: M Assigned Patient Location: CT Current Patient Location: Accession/Order Number: [id number] Exam Date: 12/20/2023 10:09 Report Date: 12/21/2023 07:52 At the request of: CLEMENTINA HENRY Procedure: CT abdomen pelvis w con EXAMINATION: CT abdomen pelvis w con HISTORY: Colitis K52.9 ; follow-up COMPARISON: CT abdomen pelvis 10/24/2023 TECHNIQUE: Axial, Coronal, and Sagittal images were obtained without and/or with IV contrast as indicated by examination type. Dose reduction techniques were achieved by using automated exposure control and/or adjustment of mA and/or kV according to patient size and/or use of iterative reconstruction technique. FINDINGS: LUNG BASES: No visible pulmonary or pleural disease. LIVER: No enlargement, atrophy, suspicious density, or significant focal lesion. BILIARY: No dilatation or calcification. PANCREAS: No lesion, fluid collection, or abnormal duct dilatation. SPLEEN: No enlargement or focal lesion. ADRENALS: No mass or enlargement. KIDNEYS: No mass, obstruction, or calcification. BOWEL/MESENTERY: Mild circumferential wall thickening of short segment of distal ileum just proximal to ileocecal valve. No obstruction. Normal appendix. AORTA/VASCULAR: No aneurysm or dissection. RETROPERITONEUM: No mass or adenopathy. LYMPH NODES: No adenopathy. URINARY BLADDER: No visible focal wall thickening, lesion, or calculus. PELVIC ORGANS: No visible mass. Pelvic organs appropriate for patient age. ABDOMINAL WALL: No mass or hernia. BONES: No bony lesion or fracture. OTHER: Negative. CT/CT abdomen pelvis w con IMPRESSION: 1. Mild wall thickening of short segment of distal ileum suggestive of inflammatory bowel disease; less than previously seen. Electronically authenticated by: PAT DE SOUZA Date: 12/21/2023 07:52
== END 2023-12-20 08:57 | disposition home or self-care (01) ==
LOC: CT 08:56
PROVIDERS: PCP Family Medicine; Visit Provider Family Medicine
DX: K52.9 Noninfective gastroenteritis and colitis, unspecified (principal)
CPT/HCPCS: 74177; Q9967

== ENCOUNTER 2024-06-14 15:02 | Emergency (ER) | payer OTHER, SELFPAY ==
[2024-06-14] VITALS (14 sets, daily range): BP systolic 142; BP diastolic 90; PULSE 64–85; TEMP 36.5; O2SAT 98–100; BMI 22.8
--- OUTSIDE RECORDS SUMMARY | 2024-06-14 15:10 | XMS_ITS | CCD ---
Author Organization [facility] Care Team Providers Care Clinical Appeals Rn Name Role Phone DR CLEMENTINA HENRY Primary Care Unavailable DR CLEMENTINA HENRY Consulting Unavailable DR CLEMENTINA HENRY Attending Unavailable DR CLEMENTINA HENRY Admitting Unavailable WEST, DR SHANELLE Ramsey Consulting Unavailable Chloe Borges Unavailable Allergies Allergy Classification Reported Allergen(s) Allergy Type Date of Onset Reaction(s) Facility Penicillins (antibiotic) (1 source) Amoxicillin Drug Allergy [facility] Repository (1 source) Am[facility] Drug Allergy [facility] Other Medications Current Medications Medication Drug Class(es) Dates Sig (Normalized) Sig (Original) dexamethasone 1 mg/ml / neomycin 3.5 mg/ml / polymyxin b 24707 unt/ml ophthalmic suspension (1 source) Aminoglycoside Antibacterial, Polymyxin-class Antibacterial, Corticosteroid Neomycin-Polymyxi n-Dexameth 3.5-81041-0.1 INSTILL 1 DROP INTO LEFT EYE THREE [...] Facility Physical Therapy Noteon Physical Therapy Note [id number]#1.[address] [place] [address] Physical Therapy Note [id number]#1.[address] [place] [address] Provider Orderson 12-27-2020 Provider Orders [id number]#1.[address] [place] [address] Coding Summaryon 12-26-2020 Coding Summary HTMLBase 64 FiczhuugVLb9zVf+PGhlYW Q+DN3WCMRtO75urLWrqD5W A4qRZV0ESKNYOCVHZD2VKH 4knUT1IQyrD1CwvsWv AnqeaGYqDL36OIz2QCJ6gV neYSzelU1xmIDtM5y1RvHv WP67lH94LBufDCWeGoK1Ie ZpbjsgbWFy U1aaZfVdxVBeIsc+PHRhYm xlIHdpZHRoPScxMDAlJyBz pZzlUJ2yJh6pQYShVWLmuH xhcHNlOiBj v8dgAQQnZLwbTW4ehGeyJ7 OvhFD8QOLuz1c1Ue36cWL+ OHMtPHJ9vKieMJwtu791Qa Ign3sdUBY1 bHUnWPlxDKX5P46zb2V5DF EvWEWhPJJ9jQP7qU2zuCsn mibiW7InuHFgMcY1EZS2cE ElnK9enLzx qtcnhY7bAiz+S39NOY9RRR YJFW1SHao3N9QsWaqbaJB+ NA95TDCyGQ31sNEycWZcp7 ysmZk8GhXc IKInRZA1dYroQObcp2NcRP AfH20unJHbe5W0BCPoyMbp bPZzXzYwmIL6sF3yFRosnh zfr0immwus Hcmrv9uwaq98lW47Y79tKD hqDMSeGEG7QSKxBGBlvTam go1hdV1oYd0+FTbns0fxz4 sllMv7GfXx RTFmrlTozMoxWNX7e8LgDw 88G0HvzOvga2ZhCwk6sr90 fDIaj9O9pPL5HFeiWDWavA 5zLMvtIpR4 MDQkAtZnnN69tHQfWXtvIx 1jqQyypZdgXR8xGOPnlblm ISXgfW7mPJTvmPQgyHnmWZ 4wNTBpbjtm h546MrNrBGU4PYUblKDfF1 FndH2oPwYlLZLrLRVcC7Re hQRpFWknU796SNqzMrZ0EB GucqEnO1Ml OWBksNjaCgT5x7N7Ui5Eo7 PxxfkrOED2XRtlYEV9KiY9 DzQfBkI4I4PeWnh2YYSxcS fwKG0hU0Fa RYTynxakmawonMP0KEUzTY AkmL94pMYuWAlgHe3qg9Z1 d222HRApJOArgD11Zv8gxG ogMTBwdCBU jZ7zdprys0pltdlzQhZjKX HfGIt5ELg5NNMnnMeySkDx TXR3ZyO6PMT8mERkgV0kgC tzhcubcP2c Oyc+A67ixN3iOQG4JGB2xa swFZJtcfNiXR78FG61O1Nu PjwvdGFibGU+PGRpdiBzdH wfMO6qFyBo f8khe9TrIDupC4XpOYOmEC tuQmi6WBLkHSU5uXJ0xW2b ALEeJKzca0A8nQS1F5Ekhh Ucqs0fp8wq YPHmJCphC85ltAIda2F4JG RtdSL4SPOjgKgmEdRcnO65 Oyc+GIJgcTofy5HgOurnl8 kfn3hgfMa4 JgShJDPeluSafGvuZDD7z7 UiVu63F90qEEktVBHjDLLb KHYcGRPdlHovwy7sjD3fZl 8+PGNvbCB3 yWD7eM1cSECtBsP0BHaiU9 37IuZovUShYwrgf2rls8nh vLf9InKyTFFffjGsmAmvCP O3l3CzDq18 H49xAHidWGEqRGExZHJbIO CxxMrpvk7ahS5vMz3+PC9j g4kimk80gI79sEV+PHRkIH C5iCkcHWrk TEWiaT3xZBzlOvD1GMUfXe DcoN69cBNeFJexTz0ugHut zDsnVJ5xWTMmrpjej218Nx Ovg8paLQCb mSUfQSctCFH3C65vc0V4GO DjFFDqQKD5eOD7uX9yvBen bjogbGVmdDsgdmVydGljYW pjATohO007 IHRvcDsnPlBhdGllbnQgTm FfKHy3H0HsYev5AZFnqBql JY6jsGWxFLneJy4nzQjouY hvEC6vPVUh rrkao229LgKaa8tzHCZamO MeTWijVAS4U91lg6O2PJFw TCBvNDE2eOL4dO0fuQirey ogbGVmdDsg zmAiaGabVAdePSuyN641OW RvcDsnPkJpcnRoIERhdGU6 EA80FF25dBRpo3I1aUQ6L9 BhZGRpbmct gpvwfRK4MOVyFSAwdF55St 0fvCuyDq3cINQmLWS5BXTe pQXmD2DciU7tWeUrZPZlLL WdL3ZikFBv CZxrF817SHcoYnR4VYGblu JfQ7ReMHRjhDnbOuI6h3P4 Ey9NZ3D6XY06TT25hBUdy3 U2hYO1Q1Cz UWBsbudlyfsieIA6QMIfMB KswJ40By8laSppZl1gHLDa UZZ3WBJjpPQsN8QpeU9nCv AjMDAwMDAw A1FiuCQwBNmtR667ICdaLi Y9NKQykwSpG1TfLXSykMgs YkI0v3Q7Xt7UEJo0GJ34BG 85uFRaf6K3 pVH3O6LvTMRwmmvytzgpjA V8PAMyZUAaqB20Yu5veHzl Zv4lTIKpSTS1BLSsnGQdI6 WspM8oLpOy ZXXhLPUwS5PezDIeUAolV5 39UCtwQgQ1XTEnaqMeT6Ud YKAjsGphQzM7u3S7Do0RUC HdHU38KMO4 nYY1RW63TD57K6QcGioouM FibGU+PHRhYmxlIHdpZHRo KKybTKAyLqLnjRafOR3eRd 9yZGVyLWNv bTxmvKZuVmWby2bgEHGsXP urGH3mfHciJ6WvlNG7CDTd n2x3Dx57Z61oA1FumYY+PG YtyBA0bVF8 gS8vYuDeXlQ9TTegF864Ks YryZLeZtypl7gpf9ermVd2 GwV1ZSQewcUaiGhtKZI7s6 LeBy72W43n IHdpZHRoPSIxNSUiIHZhbG jcgk5ryF0oVe3+PGNvbCB3 cJS2uV3zRvUyYeE4QRarP9 49InRvcCIv Xceec4ygt4oioCd8CkScCQ NyinEmsBltYVA3o9BqYl76 H6AkqJvie2LcMmn8wb69aP Ekx0Z4lTD6 B2CcRVQsxlwxoHOmnSprKD 3qOOUcxqqwKWGouG0rGQMy K9y8XsWdUyR8BOofW0Lkbq K7GBTvvIAe UQeeJKP6E01ff9I2CZBbBH IlVHI3zCH9mM5cwFlejgef bGVmdDsgdmVydGljYWwtYW vkT685VFEf aYzdCUXhuH7fSQXrkTZwbX gsBR2wZPXojbqiGncHQC1V D82hQbGdLDVPGXYLDbOGH6 9UVDwvdGQ+ UVSpKSD4qCzyCNqaHZMcaY 8sWCPyD9m5FzFaLzT1ZNxy A2QoGLJdslhuXl91rD9cEu BqYuK3GLzw U3IqcgL8JQQzhVBsFTpqRL G7X64cg6E2ZTMrPFYxDRD0 eIO8hY3sfOwmdmcetOGgnJ sgdmVydGlj XVntTQpsV884VGScjKbpIx Y2ZlM9TqD9IKC1D0BuEud9 MXKmzBfoRI7tfFCmOLxqIv 1yaWdodDog YC3bJADlrnmmKGExyR3qOK UvrGSvaQwnBG4tQKTfcgsn e198IqCuDDX7EDGhzTXqA8 NocB2gOvIs RBTkTTQpV4JndPYjDYiyS1 09RUpzClT6YTQjyeQqQ8Wm TTGcaUnmYoD9i9P6Bp9yTV BZZWFyczwv dGQ+IYWfMPR4wBdwNVnoID BraX7bLLKxZ0r3NrRaXfJ8 HFqiV6ZjKOMnulypPx66tN 3fRyKoLsD1 KTkbW7HbnjE2IXJnfQOeFI qnIXS5K95lz9P1DAItVOOh JGJ7nWU5dH8nbOvzijnhkI VmdDsgdmVy pRltZSneBMhiZ937KRVdgD lxFu1BMBM4Z6WhNgo9HNQp vCwrWU6wuNKtQUizTu9kuB rdfHrxSY0k SUDzydtpPUPldF0pFITgaY EoiTtnGW1wOQAsodkqf742 PtEqDIT9MFXvpINuD1VtiY 9yOiAjMDAw VSAdM5GhyFXqBWviL241KP rqVsZ3JGUguxViM7WnBUWf jOxfMsX0w5H9Oq7OFBH0lv YakhcfC9O2 oDF2dOKmuEiuoLC+PC90cj 76A2TlWxwkRzq2PXOwQUL3 eIN9qF7bONJbSBgxa3F6oR N7A0WzrdWp er5zw9mgGPKqZIrzT74peJ Dzz9H2JZXciIZ3RMEpwQry CnKbmW96Ppd+PGNvbGdyb3 GePsgre6dw f8gtgZk6IwTxTVAbcyHvzT fzKZA2x0NaAj49D57fUWkb ZHRoPSIzMCUiIHZhbGlnbj 6hyB7nKw6+ WRNpyXK2yZH0bW2iUdDpNn U5AIbcR854MlExsMCaOwze z7mli5gmaHd3ZtHkJZGdhj FsaWduPSJ0 d2CsTz65T7ZdrNisc4ZvVy i7kt07gZQgm3V2nRO8K5Vg YXPgjzztjSKclRkcII6iUY BpbjtwYWRk rJ2yWVToE8v1HnFsIrR2CI jnU2EldpG9IINirZFwLNKj hULHiR3jltvht0btvefmJw AwMDAwMDt0 NEj2OWJekHekZiVuBMW0Rs M8JUT4jDIpcH2kxQgfwhky aF6wBzc+VNv5t5uqcXJpCH 4qiPL2IS77 YZ12uUUlg0U5tOL9W8ZhUC ThlrdnmuuxkVJ5QZHjHMQl vR84Ed2qsPgyZa0nLTHoOA U0POEotQTk J9LahX1mGeQqIHZfLJPvU2 PnrGQqUYysZ535GGemYzM6 YFBkjmXjQ8RnBJWlsLllBa L3p3M9Eb8V IB10DP12LA62hHTfz6P8iI Y9Y3AaBRLljkrullgvtBD5 OZVaNEWqnK84Tj5wsQlfLk 6lAGFhCLR0 WJQatVAdZ3AcdK6oWlBuET RpPBOwI0XtwOIlLRbiY941 YQaeLxK6FPQzvzSrC7HiBI FsaWduOiB0 m4V5Bx0PQu38LI97LK86hH Bth5H6lCW2N7HtCVPnpacp jsazaNV5FCVlBMRfcL86Zf 7ubLxuPd0c LZHlVAX8PQRjfTUaE6YjqT 5kVqSnJCBdSEMcS8HziEDn WQvuE300QDwtYmE3VHDoki BlA7BsDEFt wNrzLdM5q6Y5Yi0MVJtdcb g3F5EoCotboBU+HI97HRUy HM97lWEtoEXnx5ykvOm3Lt EwMCUnIHN0 eWx (more content not included)... Normal [facility] XR CSPINE MIN 4 VIEWSon [...] by: SHANELLE HARTMAN Date: 2020-11-22 07:07 Normal [facility] MYLENETOUTREAOneyda 09-11-2020 [facility] Patient Outreach ([facility]) PAT DICKENS JR. ([id number]) 1990 M Date Time Provider Department 09/11/20 SHIV TEE During your visit today, we recorded the following information about you: Allergies As of Date: 09/11/2020 Noted Allergy Reaction AMOXICILLIN 06/04/2019 4 - Hives Date Reviewed: 07/16/2019 Reviewed by: Nathan Krishnan Ma - Fully Assessed Order(s):SARS-COVID VACCINE 1ST DOSE APPT [77313PRC] Order #: [id number] FUTURE Prescriptions as of 09/11/2020 Sig: OMEPRAZOLE 40 MG CAPSULE,NAYA* Take 1 capsule by mouth daily* AMITRIPTYLINE 10 MG TABLET 1 tablet at bedtime week 1, 2* Patient not taking: Reported on 07/16/2019 Problem List As Of Date: 09/11/2020 (None) Encounter Status:Closed by [employer] PRODUSER on 09/14/20 Normal [facility] Vital Signs Date Time Vital Sign Value Performing Clinician Facility 10-12-2022 13:50-0400 Body height 175.26 cm Chloe Katerina Other [facility] Other 10-12-2022 13:50-0400 Body mass index (BMI) [Ratio] 22.44 kg/m2 Chloe Katerina Other [facility] Other 10-12-2022 13:50-0400 Body temperature 97.6 [degF] Chloe Katerina Other [facility] Other 10-12-2022 13:50-0400 Body weight 68.95 kg Chloe Katerina Other [facility] Other 10-12-2022 13:50-0400 Respiratory rate 18 /min Chloe Borges Other [facility] Other 10-12-2022 13:50-0400 SaO2% (BldA) [Mass fraction] 98 % Chloe Borges Other [facility] Other Encounters Encounter Date Encounter Type Care Provider Facility Start: 10-12-2022 End: 10-12-2022 ambulatory Chloe Borges Other [facility] Other Start: 10-12-2022 Office outpatient ne w 20 minutes Chloe Borges [facility] Start: 11-21-2020 End: 11-22-[address] CLEMENTINA HENRY Facility: Payers Date Payer Category Payer Unknown [id number] 1957 Unknown [id number] Social History Date Type Detail Facility Unknown if ever smoked [facility] Other Sex Assigned At Sex Assigned At Bir th [facility] Other Evaluation note 10-12-2022 Note Date & [...] - J40) Acute bronchitis material was printed [facility] Other Medication management note 01-04-2021 Note Date & Type Note Facility 01-04-2021 Note [phone] [id number] [facility] Clinical Note 11-22-2020 Note Date & Type Note Facility 11-22-2020 Note PROCEDURE: XR SHOULD ER LT 2V or > COMPARISON: None. HISTORY: Paresthesia FINDINGS: BONES:No fracture, acute abnormality, or significant arthropathy. SOFT TISSUES:Negative. No visible soft tissue swelling. EFFUSION:None visible. OTHER: Negative. IMPRESSION: No acute abnormality Electronically authenticated by: SHANELLE HARTMAN Date: 2020-11-22 07:09 [facility] Summary Purpose Family History No Family History Records FoundNo Family History Records FoundNo Family History Records Found Advance Directives No Advanced Directives Records FoundNo Advanced Directives Records FoundNo Advanced Directives Records Found Additional Source Comments (unrecognized sect ion and content) No Status Records FoundNo Status Records FoundNo Status Records Found INFORMATION SOURCE (unrecogn ized section and content) DATE CREATED AUTHOR 09/14/2020 [facility] DATE CREATED AUTHOR AUTHOR'S ORGANIZ ATION 11/28/2020 [facility] DATE CREATED AUTHOR AUTHOR'S ORGANIZ ATION 03/21/2021 [facility] REASON FOR VISIT (unrecogniz ed section and [...] BE BASED ON THE PRIMARY CLINICAL RECORDS. [employer] provides no warranty or guarantee of the accuracy or completeness of information in this document.
--- NOTE | 2024-06-14 15:29 | ECG_ITS ---
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
--- NOTE | 2024-06-14 15:29 | XR_ITS ---
The [address] [address] Patient Name: PAT DICKENS MRN: [id number] date: 1990 Sex: M Assigned Patient Location: ER Current Patient Location: ED.MAIN Accession/Order Number: [id number] Exam Date: 06/14/2024 15:35 Report Date: 06/14/2024 16:35 At the request of: JENNIFER VU Procedure: XR chest 1V Exam: Radiographs: XR chest 1V Reason for exam: Chest pain Comparison: None XR/XR chest 1V IMPRESSION: Unremarkable chest x-ray. Electronically authenticated by: JENNY HARRELL Date: 06/14/2024 16:35
--- NOTE | 2024-06-14 15:29 | ED.CHESTPAI1 ---
HPI - Chest Pain General Chief Complaint: Chest Pain Stated Complaint: CHEST PAIN, SOB X'S A COUPLE OF WEEKS Time Seen by Provider: 06/14/24 15:04 Source: patient Mode of arrival: walk-in Limitations: no limitations History of Present Illness HPI narrative: 34-year-old male presents for chest pain. He has been having it for the last month and it seems to be increasing in frequency and duration. It happens in the middle part of her sternum and sometimes it is a pressure and sometimes it is sharp. It does not seem to radiate otherwise and he has not had shortness of breath or injury or back pain. He reports that he has been under some stress recently, he and his have 2 toddlers at home and she is currently . He has no personal history of heart disease. Related Data Home Medications ?Medication ?Instructions ?Recorded ?Confirmed No Known Home Medications 06/14/24 06/14/24 Allergies Allergy/AdvReac Type Severity Reaction Status Date / Time amoxicillin Allergy Mild Rash Verified 06/14/24 15:06 Review of Systems ROS Narrative A ten point review of systems is negative except as noted above. PFSH PFSH Social History Little interest or pleasure in doing things: not at all Feeling down, depressed, or hopeless: not at all Exam Narrative Exam Narrative: Nurses note and vital signs reviewed and patient is not hypoxic. General: The patient appears well and in no apparent distress. Patient is resting comfortably on cart. Skin: Warm, dry, no pallor noted. There is no rash noted. Head: Normocephalic, atraumatic Eye: Normal conjunctiva, no drainage Ears, Nose, Mouth, and Throat: oral mucosa is moist. Nares patent. Cardiovascular: Regular Rate and Rhythm Respiratory: Patient is in no distress, no accessory muscle use, lungs are clear to auscultation, no wheezing, rales or rhonchi Back: non-tender GI: Soft and nontender Musculoskeletal: The patient has no evidence of calf tenderness, no pitting edema, symmetrical pulses noted bilaterally Neurological: A&O, normal speech Psychiatric: Cooperative Constitutional Vital Signs, click to edit/add: Last Vital Signs Temp 97.7 F 06/14/24 15:07 Pulse 85 06/14/24 16:10 Resp 9 L 06/14/24 16:10 BP 142/90 H 06/14/24 15:09 Pulse Ox 100 06/14/24 16:10 O2 Del Method Room Air 06/14/24 15:07 Course Vital Signs Vital signs: Vital Signs Temperature 97.7 F 06/14/24 15:07 Pulse Rate 68 06/14/24 15:07 Respiratory Rate 18 06/14/24 15:07 Blood Pressure 142/90 H 06/14/24 15:07 Pulse Oximetry 100 06/14/24 15:07 Oxygen Delivery Method Room Air 06/14/24 15:07 Temperature 97.7 F 06/14/24 15:07 Pulse Rate 85 06/14/24 16:10 Respiratory Rate 9 L 06/14/24 16:10 Blood Pressure 142/90 H 06/14/24 15:09 Pulse Oximetry 100 06/14/24 16:10 Oxygen Delivery Method Room Air 06/14/24 15:07 MDM - Chest Pain MDM Narrative Medical decision making narrative: His workup is negative. He has been having the symptoms for a month and no specific cause could be determined here in the emergency department. He will be discharged home and will call his PCP in the morning for appropriate follow-up and any further testing that would be needed as an outpatient. Treatment diagnosis and follow-up were discussed with the patient. Differential Diagnosis Differential diagnosis: Likely pneumothorax, atypical chest pain, st elevation myocardial infarction, costochondritis and chest pain Lab Data Attestation: I reviewed the patient's lab results. Labs: Lab Results 06/14/24 Range/Units 15:34 WBC 5.1 (4.0-11.0) 10^3/uL RBC 4.93 (4.70-6.10) 10^6/uL Hgb 15.2 (14.0-18.0) g/dL Hct 42.8 (42.0-54.0) % MCV 86.8 (80.0-94.0) fL MCH 30.8 (25.9-34.0) pg MCHC 35.5 H (29.9-35.2) g/dL RDW 12.0 (11.0-15.0) % Plt Count 206 (150-450) 10^3/uL MPV 10.0 (9.5-13.5) fL Neut % (Auto) 67.6 (43.0-75.0) % Lymph % (Auto) 23.9 (20.5-60.0) % [place] % (Auto) 7.1 (1.7-12.0) % Eos % (Auto) 0.6 L (0.9-7.0) % Baso % (Auto) 0.6 (0.2-2.0) % Neut # (Auto) 3.4 (1.4-6.5) 10^3/uL Lymph # (Auto) 1.2 (1.2-3.8) 10^3/uL [place] # (Auto) 0.4 (0.3-0.8) 10^3/uL Eos # (Auto) 0.0 (0.0-0.7) 10^3/uL Baso # (Auto) 0.0 (0.0-0.1) 10^3/uL Abs Immat Gran (auto) 0.01 (0.00-0.03) 10^3/uL Imm/Tot Granulo (auto) 0.2 (0.0-0.5) % Sodium 141 (136-145) mmol/L Potassium 4.0 (3.5-5.1) mmol/L Chloride 103 (98-107) mmol/L Carbon Dioxide 27.5 (21.0-32.0) mmol/L Anion Gap 14.5 BUN 14.0 (7.0-18.0) mg/dL Creatinine 1.33 H (0.70-1.30) mg/dL Est GFR ( Amer) >60 (>=60 mL/min/1.73m^2) Est GFR (Non-Af Amer) >60 (>=60 mL/min/1.73m^2) BUN/Creatinine Ratio 10.5 Glucose 94 (74-106) mg/dL Calcium 9.2 (8.5-10.1) mg/dL Troponin I High Sens 5.2 (4.0-76.1) pg/mL Imaging Data Chest x-ray: Radiologist's impression: ITS Impressions Chest X-Ray 06/14/24 15:29 IMPRESSION: Unremarkable chest x-ray. Electronically authenticated by: JENNY HARRELL Date: 06/14/2024 16:35 ECG Data Attestation: I personally reviewed and interpreted this ECG as follows: (EKG on my interpretation shows normal sinus rhythm with a rate of 76 and no acute change.) Heart Score History: Slightly/Non-Suspicious ECG: Normal Age: <45 years Risk Factors: 1 or 2 Risk Factors Troponin: <Normal Limit Total Heart Score Recommendations & Risks:: 1 Discharge Plan Discharge Chief Complaint: Chest Pain Clinical Impression: Chest pain Patient Disposition: Home, Self-Care Time of Disposition Decision: 16:47 Condition: Good Mode of Transportation: Private Vehicle Prescriptions / Home Meds: No Action No Known Home Medications Print Language: Serbian Instructions: Chest Pain (ED) Referrals: Fabricio Garcia MD [Primary Care Provider] - 1 week
[2024-06-14 15:41] LABS: Basophils Percent Auto 0.6 % (0.2-2.0); Eosinophils Percent Auto 0.6 % (0.9-7.0); Hematocrit 42.8 % (42.0-54.0); Hemoglobin 15.2 g/dL (14.0-18.0); Immature Granulocytes Abs Auto 0.01 10^3/uL (0.00-0.03); Immature Granulocytes Pct Auto 0.2 % (0.0-0.5); Lymphocytes Absolute Auto 1.2 10^3/uL (1.2-3.8); Lymphocytes Percent Auto 23.9 % (20.5-60.0); Mean Corpuscular HGB Conc 35.5 g/dL (29.9-35.2); Mean Corpuscular Hemoglobin 30.8 pg (25.9-34.0); Mean Corpuscular Volume 86.8 fL (80.0-94.0); Monocytes Absolute Auto 0.4 10^3/uL (0.3-0.8); Monocytes Percent Auto 7.1 % (1.7-12.0); Neutrophils Absolute Auto 3.4 10^3/uL (1.4-6.5); Neutrophils Percent Auto 67.6 % (43.0-75.0); Platelet Count 206 10^3/uL (150-450); Red Blood Count 4.93 10^6/uL (4.70-6.10); White Blood Count 5.1 10^3/uL (4.0-11.0)
[2024-06-14 16:01] LABS: Anion Gap 14.5; BUN Creatinine Ratio 10.5; Calcium 9.2 mg/dL (8.5-10.1); Carbon Dioxide 27.5 mmol/L (21.0-32.0); Chloride 103 mmol/L (98-107); Estimated GFR (African America >60 (>=60 mL/min/1.73m^2); Estimated GFR (Non-African Ame >60 (>=60 mL/min/1.73m^2); Glucose 94 mg/dL (74-106); Sodium 141 mmol/L (136-145); Troponin I High Sensitivity 5.2 pg/mL (4.0-76.1)
== END 2024-06-14 17:10 | disposition home or self-care (01) ==
PROVIDERS: Emergency Provider Emergency Medicine; PCP Family Medicine
DX: R07.9 Chest pain, unspecified (principal)
CPT/HCPCS: 36415; 71045; 80048; 84484; 85025; 93005; 99285

== ENCOUNTER 2024-06-18 10:43 | Outpatient (OUT) | payer OTHER, SELFPAY ==
--- NOTE | 2024-06-18 10:43 | CA_ITS ---
Patient Name: PAT DICKENS MR#: [id number] : 1990 Exam Date: 06/18/2024 Ordering Doctor: DR Fabricio Garcia . ECHOCARDIOGRAM REPORT PROCEDURE: CA ECHO DOPPLER COMPLETE INDICATIONS: CHEST PAIN COMPARISON: None. DESCRIPTION: COMPLETE ECHOCARDIOGRAM Real-time transthoracic echocardiography with 2D, M-mode, spectral and color flow Doppler performed. QUALITY: Technical quality was good. LEFT VENTRICLE: Normal chamber size. Normal left ventricular wall thickness. LV EF: Global left ventricular systolic function is normal; visually estimated ejection fraction is 55 to 60%. No obvious wall motion abnormalities. DIASTOLIC: Normal diastolic function. ATRIAL SEPTUM: Visually appears intact. LEFT ATRIUM: Normal chamber size. RIGHT ATRIUM: Normal chamber size. RIGHT VENTRICLE: Normal chamber size. Normal right ventricular systolic function. TRICUSPID VALVE: Normal mobility and thickness. No stenosis with no regurgitation. MITRAL VALVE: Normal mobility and thickness. No evidence of mitral valve stenosis. There is no mitral annular calcification. No mitral regurgitation. AORTIC VALVE: Normal trileaflet appearance. Mildly thickened aortic valve. Normal leaflet mobility. No evidence of aortic valve stenosis. No aortic regurgitation. AORTIC ROOT: Normal diameter and appearance. Ascending aorta is normal in size. PULMONIC VALVE: Normal thickness and mobility. No stenosis. No regurgitation. PERICARDIUM: No evidence of pericardial effusion. IVC: Collapses with inspirations. IVC is normal in size. CONCLUSION: 1. Global left ventricular systolic function is normal; visually estimated ejection fraction is 55 to 60% 2. Normal right ventricular size and systolic function 3. Normal diastolic function 4. The left atrium is normal in size 5. No significant valvular abnormalities Adult Echocardiography Procedure Report Left Ventricle LVEDD (3.7 - 5.6 cm): 4.36 cm LVESD (2.2 - 4.0 cm): 2.68 cm LVIVS thickness (0.6 - 1.2 cm): 0.74 cm LVPW thickness (0.5 - 1.0 cm): 0.79 cm e': 0.21 m/s E - e': 3.88 LVOT Max Gradient: 5.14 mm[Hg] LVOT Area (cm2): 1.13 m/s Peak Velocity (LVOT): 1.13 m/s Mean Velocity (LVOT): 0.79 m/s LVOT Diameter 2.22 cm Left Atrium LA Volume Index (2D A2C): 25.11 ml/m2 Left Atrium Systolic Dimension: 2.73 cm Mitral Valve MV E to A Ratio: 1.47 Mitral Valve A-Wave Peak Velocity: 0.55 m/s Mitral Valve E-Wave Peak Velocity: 0.81 m/s Right Ventricle Aorta AO Root Diam: 2.75 cm Ascending Ao Diam: 2.05 cm Aortic Valve AoV Area (Peak Ross): 3.30 cm2, 3.30 cm2 AoV Area (VTI): 3.41 cm2, 3.41 cm2 Peak Velocity(Antegrade Flow): 1.33 m/s Peak Gradient(Antegrade Flow): 7.03 mm[Hg] Mean Velocity(Antegrade Flow): 0.86 m/s Mean Gradient(Antegrade Flow): 3.46 mm[Hg] Velocity Time Integral: 25.13 cm Tricuspid Valve Pulmonic Valve Mean Gradient: 5.64 mm[Hg] Mean Velocity: 1.10 m/s Peak Velocity: 1.63 m/s, 1.26 m/s Peak Gradient: 6.38 mm[Hg], 10.63 mm[Hg] Right Atrium Right Atrium Systolic Pressure: 23.82 ml, 23.82 ml Dictated by: Josse Etienne M.D. on 06/18/2024 at 15:14 Approved by: Josse Etienne M.D. on 06/18/2024 at 15:17
--- OUTSIDE RECORDS SUMMARY | 2024-06-18 11:00 | XMS_ITS | CCD ---
Author Organization [facility] Care Team Providers Care Featherer Name Role Phone DR CLEMENTINA HENRY Primary Care Unavailable DR CLEMENTINA HENRY Consulting Unavailable DR CLEMENTINA HENRY Attending Unavailable DR CLEMENTINA HENRY Admitting Unavailable WEST, DR SHANELLE Ramsey Consulting Unavailable Chloe Borges Unavailable Allergies Allergy Classification Reported Allergen(s) Allergy Type Date of Onset Reaction(s) Facility Penicillins (antibiotic) (1 source) Amoxicillin Drug Allergy [facility] Repository (1 source) Amoxicillin Drug Allergy [facility] Other Medications Current Medications Medication Drug Class(es) Dates Sig (Normalized) Sig (Original) dexamethasone 1 mg/ml / neomycin 3.5 mg/ml / polymyxin b 70077 unt/ml ophthalmic suspension (1 source) Aminoglycoside Antibacterial, Polymyxin-class Antibacterial, Corticosteroid Neomycin-Polymyxi n-Dexameth [id number] INSTILL 1 DROP INTO LEFT EYE THREE [...] Facility Physical Therapy Noteon Physical Therapy Note [id number]#[address] [place] [address] Physical Therapy Note [id number]#[address] [place] [address] Provider Orderson 12-27-2020 Provider Orders [id number]#1.[address] [place] [address] Coding Summaryon 12-26-2020 Coding Summary HTMLBase 64 JofbwsaoJKx6aCj+PGhlYW Q+YS1HWQYqK27fgWAebD9Y S0wFNC5FKKYZWUCFVA6RPH 2eiKB6KPkkT9HhmkMq JfxvkRDzTG23OWo5FNK3bK apQEaqgQ6jrBVsE4f4ErUv DF70oB42DUgjJNNjDcX4Qh ZpbjsgbWFy F4dxEnOvgWDfItk+PHRhYm xlIHdpZHRoPScxMDAlJyBz fRfsMR3fGw1qCIOzTSPkvZ xhcHNlOiBj d4inDLIcFEdmVR0keCglL7 DalCX9WYTax6h1Nv70lZD+ EQLmMMT6fUqyBPpln257Xf Mcs8ydFBN3 zJErMCquCPS5H64jo2A9QD RjHXLnHHB9nZN9hD9wxPwo rzfuT2IvkCVyFjM0QKR4hO VuwG4svBrz trswmK5mShl+W98LQK1HJJ XDPV9BBsb2C9TsWxhqzEG+ VT35IZWhFT30qJAkdQKkj1 dffPl0RdWy MRQbNQG4hKbeKZfdo3OpLQ ZqF36luNVqw6G6UGIjaCod tHBmOkVklIF4yI7lGDdeoz yiw3hpzmtm Veocv1jqey84nW17F84zZB qcQRGsVJD8AQBsLKPsfVtp is9peU2uQn2+SAzbb8xdk7 cyaFb8ToFv YYVhuqMpyLxiCWE1c9DyBv 44X4CurPwww2HrXwn8ej34 dBPto8K3fXP0YZejONRsdW 8hVRuxFqG8 JDRiEqNviW04hFHlUKarAr 2aiFtuiHzuWE7pCNMfaxiy WNJyjG2yMQDwkDFngTbsKB 4wNTBpbjtm s102PjZaLNS3HEFbcDTtB9 HjdZ7cCxFuZENzEFByY2Qh oGYnWCssQ636YTtbKnZ0RZ LyoeJcU8Ui UCStaGfhOmP8y1Z9Er1Ql3 YnktdlCWF3OWffWYM6BjE3 AdJxYlP9E8OvKyf1MADzpV frZB1qU2Eb ZGBwhaonttmdxEJ5RUYjPF NsyM76eZMlNWwrKc5qh7N4 k700KUAjAMUkpY69Hp6uhZ ogMTBwdCBU aO1nswdrx7ecdgjoMiWnFU IeKAy5QNn3AHGroGfmOnUq XVB8KtR7LPR9eHJxvG9faH pwwhnlnR0v Oyc+C40bqO8aKHT7CKC2un viGWZyatRqEW00MD50X2Sb PjwvdGFibGU+PGRpdiBzdH cmGZ6aNsDf t0amj0LrVMaeM1OjVKDeRA pdBhv2NYLbPJC2fVF4eK8j NMElIZumy1N6cNE8F2Wvrw Tqjl3kh8pq MFPjTVbbY28qiABtd6N3SD BetSX2COUyeLxhOmOuyJ37 Oyc+PMWrcLhcf5OeGovmw5 ccr6aonDi2 DlDeBOKwxjSosAzpPQZ3b6 UoJw72B48dNMdmJRBcCRTl QZTmNASatPeuam1zvX0yDs 8+PGNvbCB3 ySJ0gH0oNGGsEvR4PDjgZ0 82NvTpxLNzRknav2mzl3bd hGv1ElBaHXWcvlFkmNzcPN R5f3WbDt52 C36fDUldOZUrXMOyJFFcCG MbwYsigw0ioS7gSl0+PC9j i3iijo24sN57kTZ+PHRkIH J8uIikNGij QDPygP5vKPanUbW1GLAmRt OeqO02mZAhMAofYj2bnGsg iOvfBX6fWQYmjriqp553Qs Dsl5mjTAGc mPZeRMzwFUQ9Y05xb0K4YE GiYNHwAAU3fNQ4xD1kxIxr bjogbGVmdDsgdmVydGljYW zaLOhgR618 IHRvcDsnPlBhdGllbnQgTm FwPWq5Z7FoNqg7OBYkjOib PM3lcGZmTVnxRl2miUdspT ewYM3oCNTn jmjrl009RpMuf8tuWGNbrW EhRTopBPS5T14hm0A2ZPJg DVAxFTV3mID5nU7qoJtdmc ogbGVmdDsg kkJywXktDVgqMYhrW489VX RvcDsnPkJpcnRoIERhdGU6 GH58VL22rQUmp3F9yPG7S7 BhZGRpbmct aasdyMK4CZZgIZVieM71Wo 6jkJlzMh6wXSArVII1MKRi yPEeN5VodC9hAdJjXPJjOD PaD6CfwHSl XDleL427IXbyLdU5DZGvqt EzT0FyIFDprLfyOiI0b5O0 Ri6DS5U2AO61OL52sSSsc9 B0dYC3Y3Pt VRBpjgsollljeAL3ZHTwWO IoyQ91Yf4xtRzqXy4zVHQw MRB3XGWieYObI4HijF2fMy AjMDAwMDAw Q9ZgrXPtMNxwS550CKllQs U4SMExofEkT4LbJDFtfRps ShI1d1W1Ye7MOUz5XQ03KE 32oFNlf6A5 fZO1C4TeAKPyhcloqcmxlP M8TPCzPDVsvX13Pk0neKwc Kx9uKWQdDQY7CVGfqTLaV2 WczJ5mYvHd UAAmOINdG1BfzSIeUQzhF3 12MQtsWyS3MGZxhvDsB0Pj TKQjjPflIxU2g4F4Wj1BDH FcLD11ETK0 xQB7SL22NW72E3BuCygeaO FibGU+PHRhYmxlIHdpZHRo NHehFTZbSzLmbChdGR6lYx 9yZGVyLWNv xXfguOOmFwJoc9utDNMwZF ndKP4dpEtqE6YnjBR4ZVAd q9f9Op65L58dP2JscWB+PG ZqrES0jTR0 fX7mAwDsWaP7XAbbK650Eo SzkNVuBlcel1lvz2trzTa4 LcE5EWLsqkKugKknWML5s2 UbGy49A04h IHdpZHRoPSIxNSUiIHZhbG zirr9gaV9xVw6+PGNvbCB3 gUO1pW7mQzZeNhY2RActJ5 49InRvcCIv Hwojt7boz8lvqLq9KkLjJG LbtrQykMrpBPI8k2HmRi82 L1FmkDcuv7HlFiz6lk65kK Wol5R1hKD0 A7HaLOOrdyoliUKkhUilNS 6gXXPtehtrUASjoS8lXEKy D4g8GjBzFzO1PAqiD7Sdms N1NOItwIYm AOwsCUS7N85ox1D4DHTjHW GeIZU5jUW2cN8voXjjrwhv bGVmdDsgdmVydGljYWwtYW cmN864SOWi tEdsICQikH4lCWPbpJDknT dvGE1yGPKmdwzeTpwXZH9W C05vVfEpAOXRIEEFWjMGR6 9UVDwvdGQ+ OOGfRMT3fZkeUYzyPFRoaK 4hFYGsE2h0ReBmAcL4SSwp O3MwDINkxheuGp64oO9rQf DwEvF8CVhv N3TyubO8MAYxdQVrKRabCC A0U73gq5J3VQOoTDYfESO5 oUA0sJ7xpCzddrfpyTVzhS sgdmVydGlj WAgaNKbnV057VVDevDifOd B5EyE6ZmB0FOF8K9CcJdp3 UREovBsyVP3euRDlMUiyMq 1yaWdodDog EP7eCUFkctaiHGJblB0nVS RsjWTbjPpbNW6pPCLtyeoy f705AiUtQDY9UMCvhPCbB9 OdnW0bUqRv IHShBKKlN7SxjNLzIUkbE7 39IHbsOgT7MDMpujObJ2Sf XRFtoTooWyG5r4B4Kr3dHF BZZWFyczwv dGQ+MBXaNLG9pQqzKAvjZK KlfD3iLEEkN7l8CbUmWsZ3 BGhvO7BmOWXyynvrGb09rF 1hJrStWhU7 WIdkV3JvfgU4ZZIdaFXeGI eeGSY2U23jg8U3VRBtVRWi XYQ5tYO1nH6rhRbgvqceyI VmdDsgdmVy sUzgNTwhKSztJ414UQOnmD rsOt7AJYW3D8ZhNwl5JVPj jUmeNJ0wjTFaSJhtNr6zaY bzmGrfNJ5g SCZcdqzvAMPmeG9vCPDtvY MptMkjOU8hCMYlrcvcy621 XuTsPGV8AMTwjCQcD3QjjL 9yOiAjMDAw SHZmW3PtdCLaGJniW573VO kaBsH4BKBilcGvJ9AlEITs lEmaGfZ7n3N3Sf2OIHD7kv GvpiafT7N2 nTY7qXUkiLscyPL+PC90cj 97K2OhLxjyIpb0QKFmBOO4 iWU1mC8qCIUdJTzwv9F0eN M5M5FbfwSz yr2jf0dfDRImZXgyX74ctX Kkt6C6SYZbfOO8CPYqiMmv ZhQiqE63Jfd+PGNvbGdyb3 YmLhtta9mo r8yygBy3FvQtXNAbzfFmzU fwGRV6s7VoUd14N80yXFec ZHRoPSIzMCUiIHZhbGlnbj 8rhL6aNk2+ BNVxeDS6rTD8gZ0fIuQjXw U8ZYxaZ702UpLsdMJgWdpl n2wqj3oxfXt0FrVmSXMoxk FsaWduPSJ0 h8ZiFc95Z1IivChie3DeGv b4uo72wQWcu0G8kJD9T3Lf XJMiqiqhyRJheGxcLM0qLZ BpbjtwYWRk cU6rNTQrP2r4PlWcTqP3AT rlF8YmmnX8QTDsvMTqBXIu aHYJyK3uhswbt5truickVb AwMDAwMDt0 IEv9STCsxChnTvUuDGO3Kz R7AQK2cLHngK4ogIcmiahd zV2bEon+ARf1s3xwiIHqBU 2tsOF2ZU87 EP10oHJsz3B7hWQ1L2BuUU GfqkhbqjrakYT9VCVsSFYp gI34Ig9teCoeAa8eYGCqQR Z9LVGlvMAz H1OkyQ4kLzOkEAYbTNMrJ9 SbbKPwESibD722CZwfFaW4 YUSxdqZdP4KgDVPbkXmmFo J5z1M3Hr0Y MH48SN76NE45dZGqg4T5hA Z9E3WnCZJfwoacmqtfnIM9 KHItWCJefR64Eh1hqZwiJf 0mLZZmRYG4 BGDndZOnC4XkqZ1iXxGdSK SfEJYbC0PugOLaVHvqA928 CZzcXxL8MLZfogQqL7CfNX FsaWduOiB0 r4J3Oa4XDc90WY21LY23hD Hiu4M0rCS5J9PuRMVsadcn yrbqmMT6PUNgXZDauF57Gt 1pzMooJe7j GURbAKC8RKIubYZjE3BhbC 7oMnOiBKNzYKRfQ3ZjsGCp ALekW337UUxyMtO2DNMipt DaL5ZmSMGk bUxzHnI8g2L4Jo4CZWiuvl a3B7PeOepgtNT+PZ81ZRQp EJ15xFCmuVWos1lbkVs5Mz EwMCUnIHN0 eWx (more content not included)... Normal [facility] XR CSPINE MIN 4 VIEWSon 11-12 XR [...] by: SHANELLE HARTMAN Date: 2020-11-22 07:07 Normal [facility] MYLENETOUTREAOneyda 09-11-2020 [facility] Patient Outreach ([facility]) PAT DICKENS JR. ([id number]) 1990 M Date Time Provider Department 09/11/20 SHIV TEE During your visit today, we recorded the following information about you: Allergies As of Date: 09/11/2020 Noted Allergy Reaction AMOXICILLIN 06/04/2019 4 - Hives Date Reviewed: 07/16/2019 Reviewed by: Nathan Krishnan Ma - Fully Assessed Order(s):SARS-COVID VACCINE 1ST DOSE APPT [[id number]] Order #: [id number] FUTURE Prescriptions as of 09/11/2020 Sig: OMEPRAZOLE 40 MG CAPSULE,NAYA* Take 1 capsule by mouth daily* AMITRIPTYLINE 10 MG TABLET 1 tablet at bedtime week 1, 2* Patient not taking: Reported on 07/16/2019 Problem List As Of Date: 09/11/2020 (None) Encounter Status:Closed by [employer] PRODUSER on 09/14/20 Normal [facility] Vital Signs Date Time Vital Sign Value Performing Clinician Facility 10-12-2022 13:50-0400 Body height 175.26 cm Chloe Katerina Other [facility] Other 10-12-2022 13:50-0400 Body mass index (BMI) [Ratio] 22.44 kg/m2 Chloe Katerina Other [facility] Other 10-12-2022 13:50-0400 Body temperature 97.6 [degF] Chloe Katerina Other [facility] Other 10-12-2022 13:50-0400 Body weight 68.95 kg Chloe Katerina Other [facility] Other 10-12-2022 13:50-0400 Respiratory rate 18 /min Chloe Borges Other [facility] Other 10-12-2022 13:50-0400 SaO2% (BldA) [Mass fraction] 98 % Chloe Borges Other [facility] Other Encounters Encounter Date Encounter Type Care Provider Facility Start: 10-12-2022 End: 10-12-2022 ambulatory Chloe Borges Other [facility] Other Start: 10-12-2022 Office outpatient ne w 20 minutes Chloe Borges [facility] [place] Start: 11-21-2020 End: 11-22-[address] CLEMENTINA HENRY Facility: Payers Date Payer Category Payer Unknown [id number] 1957 Unknown [id number] Social History Date Type Detail Facility Unknown if ever smoked [facility] Other Sex Assigned At Sex Assigned At Bir th [facility] Other Evaluation note 10-12-2022 Note Date & [...] - J40) Acute bronchitis material was printed [facility] Other Medication management note 01-04-2021 Note Date & Type Note Facility 01-04-2021 Note [id number] [facility] Clinical Note 11-22-2020 Note Date & Type Note Facility 11-22-2020 Note PROCEDURE: XR SHOULD ER LT 2V or > COMPARISON: None. HISTORY: Paresthesia FINDINGS: BONES:No fracture, acute abnormality, or significant arthropathy. SOFT TISSUES:Negative. No visible soft tissue swelling. EFFUSION:None visible. OTHER: Negative. IMPRESSION: No acute abnormality Electronically authenticated by: SHANELLE HARTMAN Date: 2020-11-22 07:09 [facility] Summary Purpose Family History No Family History Records FoundNo Family History Records FoundNo Family History Records Found Advance Directives No Advanced Directives Records FoundNo Advanced Directives Records FoundNo Advanced Directives Records Found Additional Source Comments (unrecognized sect ion and content) No Status Records FoundNo Status Records FoundNo Status Records Found INFORMATION SOURCE (unrecogn ized section and content) DATE CREATED AUTHOR 09/14/2020 [facility] DATE CREATED AUTHOR AUTHOR'S ORGANIZ ATION 11/28/2020 [facility] DATE CREATED AUTHOR AUTHOR'S ORGANIZ ATION 03/21/2021 [facility] REASON FOR VISIT (unrecogniz ed section [...] BE BASED ON THE PRIMARY CLINICAL RECORDS. [employer] provides no warranty or guarantee of the accuracy or completeness of information in this document.
== END 2024-06-18 10:44 | disposition home or self-care (01) ==
LOC: CARD 10:43
PROVIDERS: PCP Family Medicine; Visit Provider Family Medicine
DX: R07.9 Chest pain, unspecified (principal)
CPT/HCPCS: 93306

== ENCOUNTER 2024-06-24 09:38 | Outpatient (OUT) | payer OTHER, SELFPAY ==
--- OUTSIDE RECORDS SUMMARY | 2024-06-24 09:41 | XMS_ITS | CCD ---
Author Organization [facility] Care Team Providers Care Day [employer] Name Role Phone DR CLEMENTINA HENRY Primary Care Unavailable DR CELMENTINA HENRY Consulting Unavailable DR CLEMENTINA HENRY Attending Unavailable DR CLEMENTINA HENRY Admitting Unavailable WEST, DR SHANELLE Ramsey Consulting Unavailable Chloe Borges Unavailable Allergies Allergy Classification Reported Allergen(s) Allergy Type Date of Onset Reaction(s) Facility Penicillins (antibiotic) (1 source) Amoxicillin Drug Allergy [facility] Repository (1 source) Amoxicillin Drug Allergy [facility] Other Medications Current Medications Medication Drug Class(es) Dates Sig (Normalized) Sig (Original) dexamethasone 1 mg/ml / neomycin 3.5 mg/ml / polymyxin b 82705 unt/ml ophthalmic suspension (1 source) Aminoglycoside Antibacterial, Polymyxin-class Antibacterial, Corticosteroid Neomycin-Polymyxi n-Dexameth [id number] INSTILL 1 DROP INTO LEFT EYE THREE [...] Facility Physical Therapy Noteon Physical Therapy Note [id number]#[address] [place] [address] Physical Therapy Note [id number]#1.[address] [place] [address] Provider Orderson 12-27-2020 Provider Orders [id number]#1.[address] [place] [address] Coding Summaryon 12-26-2020 Coding Summary HTMLBase 64 GcnljwzfGIn5eMo+PGhlYW Q+FF6DNKJbK84slWYwyR6Z N6iNGL1CBLWYRYHSHF3KZA 5jjJD3XUjiW6JxztZm IgsgoNVxLW39OLf6QPG9nH gjPUwtmJ2azFWzE0x0BcFx GV76lD41XLzqZXEyQvV4Mm ZpbjsgbWFy M6ixWrJmqQJeNcw+PHRhYm xlIHdpZHRoPScxMDAlJyBz fPopYO9qJk7yMAKbJIUmoI xhcHNlOiBj a9hhSNGcRDcvBK5bsFzyS9 BlgQU2CYKhe8v0Pe98hQD+ TNCdDTX9yDlbVHhbr143Pg Tmn9hhJQQ9 pUZjZBftGNR8J10nr7F2MF QlLQObCRI7gAR4tG7xhZmg yyhdU1KjsXYiVnD5UPQ6zA MkoR4fsOsi vnokgR7yVtl+P75LYJ4YTC RLZL2FGmq5D3TvEiqkeVG+ GM16ZVAgPZ97oHYpzOItb7 qkaAq6MfHb IAIkSPV3aRmhSFijg9XfPD EoN23qwPLth2A5VSXnvWpd uLSmQnVbnVE6fP5hFQmbbp vhe2luddxf Cjhzv5qsoc40hY56N77bQQ plAVOvIHN8HWHkSKHmbMfx la7nxI5iPw7+MVfcd6nhi6 uhuGg4QvRl MPCfgbGvlKyiYCW8i0DdSr 25P5LnuStem7HzFch3mg05 qFHmp5F5dWO5BXgwFOHieU 6vMHfcQsC0 WITqTfGzgO40lWXmGKjzHb 3baTbasYqbIO9tQRFmnbga WSKjoX1kRCMrnQMyvUxvAX 4wNTBpbjtm x127NsGzMFQ4SDOirHWbH8 WypC3mLkEzLAZhYZCoU7So cTUsPHhxI843VHwoPyU0JS MmjhOhD3Kr ODIddVvbHgH5e1Y3Fb5Uh3 VqdabxJXI4DDiuXIF7YlR6 NnXcLuJ2D3BtUyh5KITaxN wsOJ6aF3Iu LQZcnlklnnccjPX6NXFxZW OvaN29gPIyZTxoYl6pv9I2 y812IIWvPKOfiB25Nl0ofA ogMTBwdCBU rF6wauvds1pdnoafIsZjIW WfEIy3BRs7XHQldNiwJyIc PDI7CnH5ZMM9qZQthC5zoQ tikjdmmI8a Oyc+G29deX6gNLX5GUO1zy cgJHJltqLoLB88XV55P7Hb PjwvdGFibGU+PGRpdiBzdH nsYL2cSrLm x9lkh2BtLYmtX5FoAYLhUX ayIkd8OAXaTMJ1gMB3gU7a MIEdTCzuu5Q1fXN8S7Vrgi Zscr9om7wu FLQlLPtsX29cxNDzi8C9ZK BitMF2MXFbbGtnXrJzzH52 Oyc+CBQbaWcbe0LqHhchv1 vgl2rpxSo8 OkLhOYPusyZjtMtqZSP5t1 CfIk36E94uUCbqEKQeDRBp TPOwUQZzsMgmca8azM5gPc 8+PGNvbCB3 pEC3cE2mDUKsYcK0EDskQ0 40CkPxcXNqPbcbw2pkg6xq jPs9MkTjIMSulxGhsCscCX G5h4WgVh74 A19wBJzsPUIaELNkDGAbVQ RjzUkewy4fjE4gOp4+PC9j z1iegp40dY47cYZ+PHRkIH Q1mZsbERwx TLSonM1aVLisXuW6AFAkXy FjcV36zVPhCYimLg7bmZme fZbxYP6vYTCbmpwnt685Dg Mox3qiFJUe yNEfEZdyXEV8L84ld9I0QK IjACWfEHZ6mRL1jK8ggNgz bjogbGVmdDsgdmVydGljYW nfUMcuO655 IHRvcDsnPlBhdGllbnQgTm UvKLf8G8ZyXbw1SIKfsIey IG6nsMXwYRxwPm5mfDymhK lfOZ6bZUWy kzdlw550FlNka8xqZJPrhZ RkSLquPSW8Z00wo7Z2MYFc PZEqTRO8lDT5lR9rqJvihw ogbGVmdDsg osVagHcdLNoyYQqjR275MI RvcDsnPkJpcnRoIERhdGU6 IF48QX90sDMxy9F5bPJ4V0 BhZGRpbmct nfijmZV2RBOcYZZliS41Zi 4szXhgTt5bAMGyLYD3XLOp rUXcZ8TtlU0mZfQlGFMkCW CyB1QijYEk BFstP903CQaoZqP9PRQhoa DdQ0WzRTHgrPcuQeY0a6I0 Ww8YG9S8SG35WN19vDTqu6 H1mWO8C6Sq PVSprduwzmcnhSF6RBWdQH CroD96Wd2crWtdYx2cNFAi YSC9DKAgfBZqH5TecK9kAb AjMDAwMDAw B2OonWBsJQveN242ZEqaVi K4YQOacdWtE3EsHIEhuKwt PvV0m5B9Mx0KDIq8DK79KO 87sYTdj2C9 sHV8V9SmLVByvjotcatxiY O7TDVcYQDmmK67Ao7imDlr Yt8bRVMcEZJ7MSImmLUrX3 AhfH2lJlMr QUXkUYDmX9EkuHRbPNsmA2 51BBkwIhH7UNHozzXpX8Wb TMMrcPutRgO4w6U0Dc5WDN PmCB03MEN2 uIG5RJ07MA86V4DkEkizhL FibGU+PHRhYmxlIHdpZHRo PEzaFYRpOrFmkKgwTE0jFc 9yZGVyLWNv xJxbeJJgNgHzx3koGUFkRP ezSW4hqTpsJ7AxbEU2IWUa s3x0Lz88Q88sW0PwzGT+PG DoqJW9kMQ5 tZ6qKjXnIiD6AEoaQ253Pj WbuNYxCpplx3jak8sghZf3 VlJ1EUGyxuFitYvnSPZ5v2 GiAt85O25n IHdpZHRoPSIxNSUiIHZhbG keaa8qiD3zLw8+PGNvbCB3 tTQ0rL5yOxLaHoU2KVvbB6 49InRvcCIv Wncyw0fwf5zdnMk3CcZoEW PkmqPprRauLHL8a5SpKd36 Q7HwfYshe7VeJxd5zt36dW Jgs5T0hRW3 W5VvDFKlxgldiGYtiFuaOO 4rHARnjcczHLPogU0aVTKs W0l9FrRdTcB4GEapP7Gzbw A2VKNgzYWb WHvuYEZ6L47fv3O0SGLiSS CyOWU0eNQ9hR0xrOdnuhoz bGVmdDsgdmVydGljYWwtYW gsL303RQQv zEnpTAOwdG3gSTLgmEFpzJ rfDI3hKYFijurcIuvNCV8E C83oFpKdCWCPJNCJNdGIB3 9UVDwvdGQ+ AXDtCHR8dKnkHRwjJKBniH 7uYEHlR1d8FcIrBwY4UYzl J0BnJFVfadqvVn02cJ2wGo KjBhM6YWkj M7YhfzU6SNAvuOQhOSohVW O9F62xk4T1CCNqCQKdGAA6 uJF3sX7svWheelsoaWPnoB sgdmVydGlj UDutSKcuD966WPWhdLcaPb R5PnE1AaP9YXD4C6OePhd2 ASGnlTqlJR5jdOMcWXrfIm 1yaWdodDog KJ1uJEUqgqrpYMSffM1xAA VzePXkrVdvYW8yFRGyapvh g775CgVbUHD3UUEdrLHbD5 FaxP0yNlXs FLLdKSAiI1VpaLPeVHwgS9 05XSrzEqU6KYTancVyE0Yq MOOmnTzmKfA1i3O3Gp9lCA BZZWFyczwv dGQ+FCIvZMZ5wDvkNGziST ZciA4hISRfV0d9XlMpJsW7 HVfyN2DiGILoicsfAa56cI 5tHdVpMyZ4 JSlmB5KtmkH4INYkoGLoXZ jhKBL2N14tx5W6KTBpVYNd IXY6xSW8sH4piPjyzewfuC VmdDsgdmVy oNqmVGtkUGetA035KCMghG pxXs3FILV0F7RrLki1CPZz iNunJE7ysGMwGTcbTd2nvH xwmXrbSM6m PJGdnuqaGIVluW9xSOAzbY RlkUsvEN6hPZMvntzwr580 HmOmJIO6JNHcpQUhW3UphH 9yOiAjMDAw FWPcT0DxzBJaQTygC707PP cxKqB1RQQeihMmB0SkULNl wRekQxN5v3N8Ag9TSPN5dp IggjwfG0W0 iHJ3eKXnzGqfvBB+PC90cj 72X8QfVpgvVll0BIWwGCH3 fMC7vN2dOGKmWWlrd3I4bL M2A9PsgpEj xx9po5gmCWHwYAhcW23jxG Fck6X6HKSzgJZ0HPPgjSfa AyNdrZ40Cml+PGNvbGdyb3 BwOazoy4eb b6yptMo1AuRrENIrgbSmoY thRKR3b5ClVg44E14yTCuq ZHRoPSIzMCUiIHZhbGlnbj 3wgE8vLw0+ AHLfuTX8tSR9zE3bLrSqKg E6RFhwG837HkSowZBnFsnl v3qps1lmrEb2OrHzVIGxrx FsaWduPSJ0 g9TjGd30K3GnvIypa4NuSq f0ri70tVJwu4Q3oDS5Q3Ef PZDkvgluaHFsfSvjFK8cIZ BpbjtwYWRk wQ2kITTaQ6x3JvLzJgM1TB pxS7DsneB1JIJgyBByTFMb iAVJhK4hvdlbr4ijxaqnYi AwMDAwMDt0 YWc2AJPwxQjoUeYoQYT0Nf K2EVR2cGYjnA7fwDwmazrx aY3wSgx+VSb6d6odtENiWI 5dxXP9SI80 RX72oSMvq3Y6cSU5D1JfKH NjrsddybchjNC1JGNrZHEq nK93Rq6ssOmhBv5tQXCcQK N0ZVJzkGIm P3QhgN2qOoWoIGXoAGFcE2 MysACmFKdzA973NPmdVbQ7 QEMbolMuR1BnCTFjuLmrRv A4q0Y9Sk7N QF14XW22UO81hIAwj9O4yQ R0M3JpQNJlgxlngwyscIM3 DNUiAHLqrX32Az7egQyxEo 7eUNGnMJT3 SRGpiCMhR7ChvP3aKuZbJR LrGPIzY5EwbNGaXDqfN151 INvmNsG7XTKearKcY5XmZG FsaWduOiB0 j2K0Fh6RJq55LV02YD37sJ Zec6Y2aTK0G0BfDIEaamps scqsqVV4FZQoKXSxgF69Zw 0aaKveIj3t ELHtSFC0YACsaSSrL3MyuB 2sTjUpLJTjHMHhN5OmhCGk FPjxS902LLlwGeN1WSIsbv RiB8YyQKOm dBszFtV2m5B3Lg3JXTamby q5Z0ZtXyefdEI+QU57SLBz LT01rLDikMDgx8avkHh9Je EwMCUnIHN0 eWx (more content not included)... Normal [facility] XR CSPINE MIN 4 VIEWSon 11-12 [...] by: SHANELLE HARTMAN Date: 2020-11-22 07:07 Normal [facility] MYLENETOUTREAOneyda 09-11-2020 [facility] Patient Outreach ([facility]) PAT DICKENS JR. ([id number]) 1990 M Date Time Provider Department 09/11/20 SHIV TEE During your visit today, we recorded the following information about you: Allergies As of Date: 09/11/2020 Noted Allergy Reaction AMOXICILLIN 06/04/2019 4 - Hives Date Reviewed: 07/16/2019 Reviewed by: Nathan Krishnan Ma - Fully Assessed Order(s):SARS-COVID VACCINE 1ST DOSE APPT [[id number]] Order #: [id number] FUTURE Prescriptions as of 09/11/2020 Sig: OMEPRAZOLE 40 MG CAPSULE,NAYA* Take 1 capsule by mouth daily* AMITRIPTYLINE 10 MG TABLET 1 tablet at bedtime week 1, 2* Patient not taking: Reported on 07/16/2019 Problem List As Of Date: 09/11/2020 (None) Encounter Status:Closed by [employer] PRODUSER on 09/14/20 Normal [facility] Vital Signs Date Time Vital Sign Value Performing Clinician Facility 10-12-2022 13:50-0400 Body height 175.26 cm Chloe Katerina Other [facility] Other 10-12-2022 13:50-0400 Body mass index (BMI) [Ratio] 22.44 kg/m2 Chloe Katerina Other [facility] Other 10-12-2022 13:50-0400 Body temperature 97.6 [degF] Chloe Katerina Other [facility] Other 10-12-2022 13:50-0400 Body weight 68.95 kg Chloe Katerina Other [facility] Other 10-12-2022 13:50-0400 Respiratory rate 18 /min Chloe Borges Other [facility] Other 10-12-2022 13:50-0400 SaO2% (BldA) [Mass fraction] 98 % Chloe Borges Other [facility] Other Encounters Encounter Date Encounter Type Care Provider Facility Start: 10-12-2022 End: 10-12-2022 ambulatory Chloe Borges Other [facility] Other Start: 10-12-2022 Office outpatient ne w 20 minutes Chloe Borges [facility] Start: 11-21-2020 End: 11-22-[address] CLEMENTINA HENRY Facility: Payers Date Payer Category Payer Unknown [id number] 1957 Unknown [id number] Social History Date Type Detail Facility Unknown if ever smoked [facility] Other Sex Assigned At Sex Assigned At Bir th [facility] Other Evaluation note 10-12-2022 Note Date & [...] - J40) Acute bronchitis material was printed [facility] Other Medication management note 01-04-2021 Note Date & Type Note Facility 01-04-2021 Note [id number] [facility] Clinical Note 11-22-2020 Note Date & Type Note Facility 11-22-2020 Note PROCEDURE: XR SHOULD ER LT 2V or > COMPARISON: None. HISTORY: Paresthesia FINDINGS: BONES:No fracture, acute abnormality, or significant arthropathy. SOFT TISSUES:Negative. No visible soft tissue swelling. EFFUSION:None visible. OTHER: Negative. IMPRESSION: No acute abnormality Electronically authenticated by: SHANELLE HARTMAN Date: 2020-11-22 07:09 [facility] Summary Purpose Family History No Family History Records FoundNo Family History Records FoundNo Family History Records Found Advance Directives No Advanced Directives Records FoundNo Advanced Directives Records FoundNo Advanced Directives Records Found Additional Source Comments (unrecognized sect ion and content) No Status Records FoundNo Status Records FoundNo Status Records Found INFORMATION SOURCE (unrecogn ized section and content) DATE CREATED AUTHOR 09/14/2020 [facility] DATE CREATED AUTHOR AUTHOR'S ORGANIZ ATION 11/28/2020 [facility] DATE CREATED AUTHOR AUTHOR'S ORGANIZ ATION 03/21/2021 [facility] REASON FOR VISIT (unrecogniz ed section [...] BE BASED ON THE PRIMARY CLINICAL RECORDS. [employer] provides no warranty or guarantee of the accuracy or completeness of information in this document.
--- NOTE | 2024-06-24 11:27 | P.STRESS_ITS ---
Stress Test Stress Test Allergies Allergy/AdvReac Type Severity Reaction Status Date / Time amoxicillin Allergy Mild Rash Verified 06/14/24 15:06 Requesting physician: Fabricio Garcia Procedure: Exercise Cardiolite stress test General Information: Reason for Stress Test: Chest pain, dyspnea Cardiac History and Risk Factors: No personal history. Unspecified cardiovascular disease in grandparents. Resting 12 - Lead Electrocardiogram: Rate & rhythm: Sinus arrhythmia with variable rate from 87 to 109 [place]: Right-axis deviation T-waves: Inverted in aVL ST-segments: Normal Stress Test: Protocol: Abdiaziz protocol was followed Exercise capacity: Superb exercise capacity. Total exercise time of 12 minutes 30 seconds reached Abdiaziz stage 5 at 5MPH, 18% grade, & 15.2 METs. Blood pressure: Initial: 152/78, Maximum: 196/104 Rate & rhythm: Patient remained in sinus rhythm during the exercise and recovery portions of the study.? The maximum heart rate was 184, which was 97% of the maximum predicted heart rate. ST-segments & T-waves: There were no T-wave changes or ST-segment changes when compared to the baseline EKG. Patient response/symptoms: There were no symptoms similar to the chief complaint. Interpretation: Normal exercise stress test without electrocardiographical evidence of ischemia. Asymptomatic of chief complaint. Banda treadmill score is 12.5, which places patient in a low risk category. Clinical correlation required.
== END 2024-06-24 09:39 | disposition home or self-care (01) ==
LOC: CARD 09:38
PROVIDERS: PCP Family Medicine; Visit Provider Family Medicine
DX: R07.9 Chest pain, unspecified (principal)
CPT/HCPCS: 93017